=== PATIENT | female | born 1990 | race Caucasian/White ===

== ENCOUNTER 2017-02-14 15:03 | Observation (INO) ==
[2017-02-14] MEDS ORDERED: IPRATROPIUM/ALBUTEROL 3 ML AMPUL.NEB NEB ONE ×2 (15:14→15:18)
[2017-02-14] MEDS ORDERED: LEVOFLOXACIN 750 MG TABLET PO ONE (15:31)
[2017-02-14] MEDS ORDERED: 0.9 % SODIUM CHLORIDE 2,000 ML IV ONE (15:31)
[2017-02-14] MEDS ORDERED: LORazepam 2 MG/ML VIAL IV ONE (15:31)
[2017-02-14] MEDS ORDERED: TERBUTALINE 1 MG/ML VIAL SQ ONE (15:31)
[2017-02-14 16:29] LABS: Basophils # (Auto) 0.1 K/mcL (0.0-0.3); Basophils % (Auto) 0.5 % (0.0-2.0); Eosinophils # (Auto) 3.2 K/mcL (0.0-0.7); Eosinophils % (Auto) 31.1 % (0.0-7.0); Granulocytes % (Auto) 41.3 % (38.0-78.0); Lymphocytes # (Auto) 2.3 K/mcL (1.5-4.8); Lymphocytes % (Auto) 22.2 % (15.5-49.0); Mean Cell Volume 94.2 fL (80.0-100.0); Mean Corpuscular HGB Conc 32.9 g/dL (31.0-36.0); Monocytes # (Auto) 0.5 K/mcL (0.1-0.9); Monocytes % (Auto) 4.9 % (1.0-12.0); Platelet Count 326 K/mcL (140-440); RBC 5.33 M/mcL (4.00-5.20); Red Cell Distribution Width 13.1 % (11.5-14.5)
[2017-02-14 16:46] LABS: ALT/SGPT 20 U/l (0-40); Albumin 4.6 gm/dL (3.2-5.2); Albumin/Globulin Ratio 1.3 (1.0-2.3); Alkaline Phosphatase 74 U/L (39-117); Blood Urea Nitrogen 12 mg/dl (6-20)
[2017-02-14] MEDS ORDERED: ALBUTEROL SULFATE 5 MG/ML NEB SOLUTION BOTTLE NEB ONE ×2 (16:55→17:12)
[2017-02-14] MEDS ORDERED: methylPREDNISolone SOD SUCC 125 MG/2 ML VIAL IV ONE (16:55)
--- NOTE | 2017-02-14 17:06 | Emergency Department Note ---
General Adult HPI - General Chief complaint: Shortness of Breath/Dyspnea Stated complaint: difficulty breathing/cough Time Seen by Provider: 02/14/17 15:31 Source: patient Mode of arrival: ambulatory Limitations: no limitations - History of Present Illness HPI Narrative: 26-year-old female comes in with dyspnea and hypoxia down to 87% with significant cough. Has history of recent pneumonia 6 weeks ago which was treated and resolved. Denies fever and vomiting but is having some nausea. No diarrhea or dysuria - Related Data Previous Rx's Medication Instructions Recorded Albuterol Sulfate [Proair Hfa] 2 puff IH Q6 PRN #1 hfa.aer.ad 11/13/16 fluoxetine 20 mg capsule 20 mg PO QDAY #90 cap 12/17/16 Allergies Allergy/AdvReac Type Severity Reaction Status Date / Time No Known Drug Allergies Allergy Verified 10/30/16 05:55 Review of Systems All systems ED: reviewed and negative except as stated. Past Medical History - Past Medical History Attestation: Yes: The following information was validated with the patient. Medical history: Reports: no medical history Surgical history ED: Reports: tonsillectomy, other (wisdom teeth) Psychiatric history: Reports: anxiety, depression - Social History smoking status: Former smoker Alcohol use: Reports: Occasionally Drug use: Reports: unknown Physical Exam Thin female with some respiratory distress and significant tight cough. Normocephalic atraumatic. Conjunctive are clear sclerae nonicteric. No nasal discharge or congestion. Oropharynx is pink and moist. Neck is supple without lymphadenopathy or thyromegaly. Heart is tachycardic without murmur. Lungs are with wheezes and rhonchi in all lung muniz. Cannot take a deep breath without significant coughing episode. Oxygen saturations drop as well with these. Soft nontender nondistended no peritoneal signs or guarding. No pedal edema. +2 radial pulse. Alert and oriented - General Limitations: no limitations Course Vital Signs Temperature 97.9 F 02/14/17 15:05 Pulse Rate 134 H 02/14/17 15:05 Respiratory Rate 28 H 02/14/17 15:05 Blood Pressure 124/80 02/14/17 15:05 Pulse Oximetry (%) 87 L 02/14/17 15:05 Temperature 97.7 F 02/15/17 06:54 Pulse Rate 99 H 02/15/17 07:53 Respiratory Rate 18 02/15/17 07:53 Blood Pressure 125/75 02/15/17 06:54 Pulse Oximetry (%) 96 02/15/17 06:54 Medical Decision Making - Medical Records Medical records reviewed: Yes I reviewed the patient's medical records. - Lab Data Lab results reviewed: Yes I reviewed the patient's lab results. Result diagrams: 02/15/17 05:30 02/15/17 05:30 Lab Results 02/14/17 02/14/17 02/14/17 Range/Units 15:35 15:35 16:01 WBC 10.1 (4.5-11.0) K/mcL RBC 5.33 H (4.00-5.20) M/mcL Hgb 16.5 H (12.0-15.0) g/dL Hct 50.2 H (36.0-48.0) % MCV 94.2 (80.0-100.0) fL MCH 31.0 (26.0-34.0) pg MCHC 32.9 (31.0-36.0) g/dL RDW 13.1 (11.5-14.5) % Plt Count 326 (140-440) K/mcL MPV 9.1 (7.4-10.4) fL Gran % 41.3 (38.0-78.0) % Lymph % (Auto) 22.2 (15.5-49.0) % [place] % (Auto) 4.9 (1.0-12.0) % Eos % (Auto) 31.1 H (0.0-7.0) % Baso % (Auto) 0.5 (0.0-2.0) % Gran # 4.2 (1.8-8.0) K/mcL Lymph # 2.3 (1.5-4.8) K/mcL [place] # 0.5 (0.1-0.9) K/mcL Eos # 3.2 H (0.0-0.7) K/mcL Baso # 0.1 (0.0-0.3) K/mcL VBG Lactic Acid 1.0 (0.5-2.2) mmol/L Sodium 142 (133-145) mmol/L Potassium 4.0 (3.3-5.1) mmol/L Chloride 105 (96-108) mmol/L Carbon Dioxide 23 (22-30) mmol/L Anion Gap 14.0 (8-16) BUN 12 (6-20) mg/dl Creatinine 1.0 (0.6-1.1) mg/dl GFR Calculation 79 Glucose 85 (70-105) mg/dL Calcium 9.5 (8.6-10.4) mg/dl Total Bilirubin 1.1 H (0.0-1.0) mg/dL AST 28 (0-37) U/l ALT 20 (0-40) U/l Alkaline Phosphatase 74 (39-117) U/L Total Protein 8.1 (5.9-8.4) gm/dL Albumin 4.6 (3.2-5.2) gm/dL Globulin 3.5 (2.2-3.7) gm/dL Albumin/Globulin Ratio 1.3 (1.0-2.3) Detailed blood gas shows pH 7.43 PCO2 35 PO2 59 on room air - Radiology Data Radiology results reviewed: Yes I reviewed the patient's radiology results. Chest x-ray shows no acute cardiopulmonary pathology. Stigmata of asthma with hyperinflation Disposition Clinical Impression: Bronchitis Summary: Patient initially treated with oxygen and ordered laboratory and x-ray along with breathing treatment. Improvement with single breathing treatment however required continuous albuterol as she was still with wheezing and rhonchi in all lung muniz. Solu- Medrol Levaquin. Blood gases show hypoxia At this point it was clear she had significant bronchitis with hypoxia and was not able to go home in stable condition-she required admission with breathing treatments IV steroids and oxygen Dr. Krishnan was consulted and agreed to accept patient for further care Disposition: Xfer As Inpt ([facility]) Condition: Fair
[2017-02-14] MEDS ORDERED: SENNOSIDES 1 TABLET PO PRN (18:37)
[2017-02-14] MEDS ORDERED: MAG HYDROX/AL HYDROX/SIMETH 30 ML ORAL.SUSP PO PRN (18:37)
[2017-02-14] MEDS ORDERED: MAGNESIUM SULFATE 2 GM/50 ML BAG IV ONE (18:37)
[2017-02-14] MEDS ORDERED: NALOXONE HCL 0.4 MG/ML VIAL IV PRN (18:37)
[2017-02-14] MEDS ORDERED: ONDANSETRON 4 MG/2 ML VIAL IV PRN (18:37)
--- NOTE | 2017-02-14 18:49 | XRay Report ---
CLINICAL INFORMATION: Dyspnea COMPARISON: 11/13/2016 FINDINGS:The heart size, mediastinum and pulmonary vessels are unremarkable. The lungs are clear. There are no effusions. The bones and soft tissues are within normal limits. IMPRESSION: Normal chest. Please consider d-dimer measurement if the patient is on oral contraceptives Interpreted and Authenticated by: Chris Box 02/14/17
--- NOTE | 2017-02-14 19:18 | Internal Med History&Physical ---
Medical - H&P: HPI Patient information: Note initiated : 02/14/17 at 7:10 pm Service Date, if different from initiated Date: [] Patient: Jackie Beth a 26 y/o F admitted on 02/14/17 for difficulty breathing/cough. Chief Complaint: [] History of present illness: Ms. Beth is a 26 year old female with no known h/o asthma, presents to the ER with shortness of breath, chest tightness, cough and palpitations. The patient notes her symptoms have been going on for last 2 months, 6 weeks ago she was diagnosed with PNA and her symptoms somewhat improved after treatment. She did not complete the course for pna, and nearly a week or two later her symptoms started to come back up again. The patinet symptoms progressively got worse and therefore she decided to come to the ER her main symptom is shortness of breath associated with chest tightness and wheezing. This is accompanied by cough which is intermittent and she occasionaly brings up whitish sputum. The patient has ventolin which somewhat helps. She has also been prescribed a symbicort inhaler by her doctor. symptoms likely worse by grass, but she does not report any other allergies. Patient denies h/o any allergies, change in any perfumes, she has pets which she does not think she is allergic too, no h/o asthma in the family. no change in job or any other exposure. In the ER she was tachcyardic, wheezing and hypoxic, she had a neg x ray and unremarkable labs, She received IV steroids, duonebs and terbutaline in the ER. The patient will be admitted to hospital for further management. All systems: reviewed and no additional remarkable complaints except as stated ( except as per HPI) Medical - H&P: PMH Medical history: Medical History (Last Updated 02/14/17 @ 17:06 by Duane Carvajal MD) Vaginal discharge (Acute) Pelvic pain (Acute) Viral syndrome (Acute) Urinary tract infection (Acute) Influenza (Acute) Acute neck sprain (Acute) Rotator cuff (capsule) sprain (Acute) Upper respiratory infection (Acute) Bronchitis (Acute) Post traumatic stress disorder (Chronic) Hematochezia (Chronic) Drug abuse (Chronic) Depression (Chronic) Anxiety (Chronic) Surgical history: Past Surgical History (Last Updated 02/05/17 @ 14:12 by [facility]) History of wisdom tooth extraction (Chronic) History of tonsillectomy (Chronic) Status post right foot surgery (Chronic) History of colonoscopy (Chronic) Family history: reviewed and not pertinent Social history: lives with denies substance abuse except smoking. Pt to g et counselling. Smoking status: Current every day smoker Medical - H&P: Meds Home Medications Medication Instructions Recorded Confirmed Type Albuterol Sulfate [Proair Hfa] 2 puff IH Q6 PRN #1 hfa.aer.ad 11/13/16 02/14/17 Rx fluoxetine 20 mg capsule 20 mg PO QDAY #90 cap 12/17/16 02/14/17 Rx Allergies Allergy/AdvReac Type Severity Reaction Status Date / Time No Known Drug Allergies Allergy Verified 10/30/16 05:55 Medical - H&P: Exam - Constitutional Vitals: Temp Pulse Resp BP Pulse Ox 97.9 F 115 H 16 117/73 90 02/14/17 18:38 02/14/17 18:38 02/14/17 18:38 02/14/17 18:38 02/14/17 18:38 Exam: GENERAL: The patient is a well-developed, well-nourished in no apparent distress. Is alert and oriented x3. VITAL SIGNS: Reviewed and as noted elsewhere. HEENT: Head is normocephalic and atraumatic. Extraocular muscles are intact. Pupils are equal, round, and reactive to light. Nares appeared normal. Mouth appears any without lesions. Mucous membranes are moist. NECK: Normal to inspection, Supple, No lymphadenopathy or thyromegaly. LUNGS: Air entry equal on both sides, bilateral wheezing and rhonich, prlonged exp phase. No crackles, No accessory muscles of respiration, she is speaking full sentences. HEART: tachycardic rate rate and rhythm normal, S1 and S2 heard, no Gallop, S3 or Rub Noted, No Gross murmur heard. ABDOMEN: Soft, nontender, and nondistended. Positive bowel sounds. No hepatosplenomegaly was noted. EXTREMITIES: No cyanosis, clubbing, rash, lesions or edema. NEUROLOGIC: Cranial nerves II through XII are grossly intact. Motor and Sensory System Grossly Intact PSYCHIATRIC: Normal affect, Normal Mood. Appropriate Behavior. SKIN: No ulceration or wounds noted, No jaundice, No rash noted. Medical - H&P: Reslt - Labs CBC & Chem 7: 02/14/17 15:35 02/14/17 15:35 Medical - H&P: A/P - Narrative A/P Narrative: Acute asthma exacerbation: treat with steroids and duonebs, no e/o infection on the CXR, will give one dose of mag sulphate. aware of radiolgoy request of erick cantrell, but given clinical history and findings of reactive airway disease/asthma, I think PE Is very low probability and D dimer will not help much. wells pe score is 1.5 for tachycardia. Acute hypoxic resp failure: due to asthma, oxygen supplementation for now Anxiety disorder: not taking any meds for now. DVT hep sq Diet regular Code full Medical - H&P: Qual - Stroke Symptom Onset Unknown: No - VTE Deep Vein Thrombosis/Pulmonary Embolism Present on Admission: No
[2017-02-14] MEDS: IPRATROPIUM/ALBUTEROL 3 ML AMPUL.NEB NEB SCH ×2 (19:24→23:03)
[2017-02-14] MEDS: 0.9 % SODIUM CHLORIDE 1,000 ML IV SCH (20:13)
[2017-02-14] MEDS: NICOTINE 7 MG PATCH TOPICAL SCH (20:20)
[2017-02-14] MEDS: HEPARIN 5,000 UNIT/ML VIAL SQ SCH (21:50)
[2017-02-14] MEDS: FAMOTIDINE/PF 20 MG/2 ML VIAL IV SCH (21:51)
[2017-02-14] MEDS: 0.9 % SODIUM CHLORIDE 10 ML SYRINGE IV SCH (22:01)
[2017-02-14] MEDS: ACETAMINOPHEN 325 MG TABLET PO PRN (23:40)
[2017-02-15] MEDS: IPRATROPIUM/ALBUTEROL 3 ML AMPUL.NEB NEB SCH ×6 (03:28→23:03)
[2017-02-15] MEDS: 0.9 % SODIUM CHLORIDE 10 ML SYRINGE IV SCH ×3 (05:24→20:18)
[2017-02-15 06:35] LABS: Basophils # (Auto) 0 K/mcL (0.0-0.3); Basophils % (Auto) 0 % (0.0-2.0); Eosinophils # (Auto) 0 K/mcL (0.0-0.7); Eosinophils % (Auto) 0.1 % (0.0-7.0); Granulocytes % (Auto) 91.8 % (38.0-78.0); Lymphocytes # (Auto) 0.5 K/mcL (1.5-4.8); Lymphocytes % (Auto) 5.9 % (15.5-49.0); Mean Cell Volume 93.5 fL (80.0-100.0); Mean Corpuscular HGB Conc 33.7 g/dL (31.0-36.0); Mean Corpuscular Hemoglobin 31.5 pg (26.0-34.0); Monocytes # (Auto) 0.2 K/mcL (0.1-0.9); Monocytes % (Auto) 2.2 % (1.0-12.0); Platelet Count 307 K/mcL (140-440); RBC 4.45 M/mcL (4.00-5.20)
[2017-02-15 06:55] LABS: ALT/SGPT 17 U/l (0-40); Albumin/Globulin Ratio 1.3 (1.0-2.3); Alkaline Phosphatase 65 U/L (39-117); Bilirubin,Direct < 0.2 mg/dL (0.0-0.3); Blood Urea Nitrogen 9 mg/dl (6-20); Gamma Glutamyl Transpeptidase 13 U/L (5-36); Magnesium 2.1 mg/dL (1.6-2.5); Uric Acid 4.2 mg/dL (2.5-8.0)
[2017-02-15] MEDS: ACETAMINOPHEN 325 MG TABLET PO PRN (09:19)
[2017-02-15] MEDS: NEUTRA PHOS 1 PACKET PO SCH ×2 (09:19→20:36)
[2017-02-15] MEDS: predniSONE 20 MG TABLET PO SCH (09:20)
[2017-02-15] MEDS: FAMOTIDINE/PF 20 MG/2 ML VIAL IV SCH ×2 (09:21→20:35)
[2017-02-15] MEDS: HEPARIN 5,000 UNIT/ML VIAL SQ SCH ×2 (09:27→20:17)
[2017-02-15] MEDS: NICOTINE 7 MG PATCH TOPICAL SCH (09:31)
[2017-02-15] MEDS: 0.9 % SODIUM CHLORIDE 1,000 ML IV SCH ×2 (09:31→22:01)
--- NOTE | 2017-02-15 12:03 | Internal Med Progress Note ---
Medical - PN: Subj Patient information: Note initiated : 02/15/17 at 12:01 pm Service Date, if different from initiated Date: [] Patient: Jackie Beth a 26 y/o F admitted on 02/14/17 for difficulty breathing/cough. Chief Complaint: [] Interval history: Ms. Beth is a 26 year old female with no known h/o asthma, presents to the ER with shortness of breath, chest tightness, cough and palpitations. The patient notes her symptoms have been going on for last 2 months, 6 weeks ago she was diagnosed with PNA and her symptoms somewhat improved after treatment. She did not complete the course for pna, and nearly a week or two later her symptoms started to come back up again. The patinet symptoms progressively got worse and therefore she decided to come to the ER her main symptom is shortness of breath associated with chest tightness and wheezing. This is accompanied by cough which is intermittent and she occasionaly brings up whitish sputum. The patient has ventolin which somewhat helps. She has also been prescribed a symbicort inhaler by her doctor. symptoms likely worse by grass, but she does not report any other allergies. Patient denies h/o any allergies, change in any perfumes, she has pets which she does not think she is allergic too, no h/o asthma in the family. no change in job or any other exposure. In the ER she was tachcyardic, wheezing and hypoxic, she had a neg x ray and unremarkable labs, She received IV steroids, duonebs and terbutaline in the ER. The patient will be admitted to hospital for further management. 02/15: Pt seen exained, sitting comfortably in the bed, no acute issues reported , has chr back pain, which she notes is getting worse after repeated bouts of coughing and tyelnol and ibuprofen have not been helping much. will try some tramadol the patients breathing is better, but she is still sob when she gets out of bed She remains tachycardic, but no longer hypoxic on further discussion the patient notes her HR is always elevated whenever she has had her BP checked, always 110 to 120 will check TSH She is still wheezing on exam. Pertinent ROS: Denies headache, dizziness Denies chest pain, palpitations cough and sob on activity present. Denies abdominal pain, nausea or vomiting. - Constitutional Vitals: Vital Signs Temp Pulse Resp BP Pulse Ox 97.8 F 128 H 20 133/74 96 02/15/17 11:37 02/15/17 11:10 02/15/17 11:37 02/15/17 11:37 02/15/17 11:37 Period Temp Pulse Resp BP Sys/Gore Pulse Ox Last 24 Hr 97.7 F-97.9 F 99-128 16-22 125-142/72-88 91-97 Intake and Output 02/14/17 02/15/17 02/15/17 21:59 05:59 13:59 Intake Total 500 / 500 1598 / 1598 Output Total 400 / 400 Balance 100 / 100 1598 / 1598 Weight 160 lb Intake & Output: Intake & Output 02/14/17 02/15/17 02/15/17 21:59 05:59 13:59 Intake Total 500 / 500 1598 / 1598 Output Total 400 / 400 Balance 100 / 100 1598 / 1598 Weight 160 lb Intake: IV 998 / 998 Sodium Chloride 0.9% 1, 998 / 998 000 ml @ 75 mls/hr IV . [id number] [facility] Rx#:[id number] Oral 500 / 500 600 / 600 Output: Void Amount 400 / 400 Other: # Voids 1 Exam: Constitutional; Afebrile, cooperative, alert, not in distress. Eyes- No icterus, , No periorbital swelling Ears- Ext ear normal, hearing normal to conversation. Neck- Midline trachea, supple Respiratory system: Air Entry equal on both sides, Nbil wheezing, prlonged exp phase noted. speaking full sentences, no accessory muscle use. CVS- Rate rhythm regular, S1,S2 heard, no gallop, no rub. 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 Medical - PN: Obj Da - Labs CBC & Chem 7: 02/15/17 05:30 02/15/17 05:30 Labs: Abnormal Lab Results 02/15/17 02/15/17 05:30 05:30 Gran % 91.8 H Lymph % (Auto) 5.9 L Lymph # 0.5 L Carbon Dioxide 18 L Glucose 152 H Calcium 8.5 L Phosphorus 1.6 L Meds: Medications Acetaminophen (Tylenol) 650 mg PO Q6HP PRN PRN Reason: PAIN/FEVER > 101 Last Admin: 02/15/17 09:19 Dose: 650 mg Al Hydrox/Mg Hydrox/Simethicone (Maalox) 30 ml PO Q6HP PRN PRN Reason: Dyspepsia Albuterol/Ipratropium (Duoneb) 3 ml NEB Q4HRT [facility] Last Admin: 02/15/17 11:08 Dose: 3 ml Famotidine (Pepcid) 20 mg IV Q12 [facility] Last Admin: 02/15/17 09:21 Dose: 20 mg Heparin Sodium (Porcine) (Heparin) 5,000 unit SQ Q12 [facility] Last Admin: 02/15/17 09:27 Dose: Not Given Sodium Chloride (Sodium Chloride 0.9%) 1,000 mls @ 75 mls/hr IV .[id number] [facility] Last Admin: 02/15/17 09:31 Dose: 75 mls/hr Naloxone HCl (Narcan) 0.1 mg IV Q2MIN PRN PRN Reason: Opiate Reversal Nicotine (Nicoderm) 7 mg TOPICAL DAILY@1000 [facility] Last Admin: 02/15/17 09:31 Dose: 7 mg Ondansetron HCl (Zofran) 4 mg IV Q6HP PRN PRN Reason: Nausea And Vomiting Potassium/Phosphorus/Sodium (Neutra Phos) 1 packet PO BID [facility] Last Admin: 02/15/17 09:19 Dose: 1 packet Prednisone (Prednisone) 40 mg PO QAC [facility] Last Admin: 02/15/17 09:20 Dose: 40 mg Senna (Senokot) 2 tab PO HS PRN PRN Reason: Constipation Sodium Chloride (Saline Flush) 10 ml IV Q8 [facility] Last Admin: 02/15/17 05:24 Dose: Not Given Medical - PN: A/P - Time Spent With Patient Total time spent is greater than 50% in coordination of care (as documented) at patient's floor/unit and/or counseling patient: - Narrative A/P Narrative: Acute asthma exacerbation: Treat with Steroids, duonebs, X ray neg for infection Back pain: tyelnol not working trial of tramadol Anxiety: off medications, was supposed to be on fluoxetine Tachycardia: likely from anxiety, and duonebs. Monitor. DVT hep sq Diet regular full c ode. Dispo anticipate d/c in AM if improves. Medical - PN: Qual - Stroke Symptom Onset Unknown: No - VTE Deep Vein Thrombosis/Pulmonary Embolism Present on Admission: No
[2017-02-15] MEDS: traMADol 50 MG TABLET PO PRN (17:57)
[2017-02-16] MEDS: traMADol 50 MG TABLET PO PRN ×4 (03:35→20:17)
[2017-02-16] MEDS: IPRATROPIUM/ALBUTEROL 3 ML AMPUL.NEB NEB SCH ×6 (03:35→23:01)
[2017-02-16] MEDS: 0.9 % SODIUM CHLORIDE 10 ML SYRINGE IV SCH ×3 (05:31→20:17)
[2017-02-16] MEDS: HEPARIN 5,000 UNIT/ML VIAL SQ SCH ×2 (08:01→20:17)
[2017-02-16] MEDS: predniSONE 20 MG TABLET PO SCH (09:05)
[2017-02-16] MEDS: FAMOTIDINE/PF 20 MG/2 ML VIAL IV SCH ×2 (09:06→20:17)
[2017-02-16] MEDS: NEUTRA PHOS 1 PACKET PO SCH ×2 (09:06→20:17)
[2017-02-16] MEDS: NICOTINE 7 MG PATCH TOPICAL SCH (09:12)
[2017-02-16 10:22] LABS: Basophils # (Auto) 0 K/mcL (0.0-0.3); Basophils % (Auto) 0.1 % (0.0-2.0); Eosinophils # (Auto) 0.6 K/mcL (0.0-0.7); Eosinophils % (Auto) 3.6 % (0.0-7.0); Granulocytes % (Auto) 69.8 % (38.0-78.0); Lymphocytes # (Auto) 3.5 K/mcL (1.5-4.8); Mean Corpuscular HGB Conc 33.2 g/dL (31.0-36.0); Mean Corpuscular Hemoglobin 31.6 pg (26.0-34.0); Monocytes # (Auto) 0.9 K/mcL (0.1-0.9); Monocytes % (Auto) 5.5 % (1.0-12.0); Platelet Count 285 K/mcL (140-440); RBC 4.17 M/mcL (4.00-5.20); Red Cell Distribution Width 13.8 % (11.5-14.5)
[2017-02-16 10:44] LABS: ALT/SGPT 14 U/l (0-40); Albumin 3.4 gm/dL (3.2-5.2); Albumin/Globulin Ratio 1.3 (1.0-2.3); Alkaline Phosphatase 54 U/L (39-117); Bilirubin,Direct < 0.2 mg/dL (0.0-0.3); Blood Urea Nitrogen 10 mg/dl (6-20); Gamma Glutamyl Transpeptidase 12 U/L (5-36); Uric Acid 3.1 mg/dL (2.5-8.0)
[2017-02-16] MEDS: 0.9 % SODIUM CHLORIDE 1,000 ML IV SCH (12:45)
--- NOTE | 2017-02-16 16:17 | Internal Med Progress Note ---
Medical - PN: Subj Patient information: Note initiated : 02/16/17 at 4:17 pm Service Date, if different from initiated Date: [] Patient: Jackie Beth a 26 y/o F admitted on 02/14/17 for difficulty breathing/cough. Chief Complaint: [] Interval history: february 14, 2017: History of present illness; Ms. Beth is a 26 year old female with no known h/o asthma, presents to the ER with shortness of breath, chest tightness, cough and palpitations. The patient notes her symptoms have been going on for last 2 months, 6 weeks ago she was diagnosed with PNA and her symptoms somewhat improved after treatment. She did not complete the course for pna, and nearly a week or two later her symptoms started to come back up again. The patient's symptoms progressively got worse and therefore she decided to come to the ER her main symptom is shortness of breath associated with chest tightness and wheezing. This is accompanied by cough which is intermittent and she occasionally brings up whitish sputum. The patient has ventolin which somewhat helps. She has also been prescribed a symbicort inhaler by her doctor. symptoms likely worse by grass, but she does not report any other allergies. Patient denies h/o any allergies, change in any perfumes, she has pets which she does not think she is allergic too, no h/o asthma in the family. no change in job or any other exposure. In the ER she was tachcyardic, wheezing and hypoxic, she had a neg x ray and unremarkable labs, She received IV steroids, duonebs and terbutaline in the ER. The patient will be admitted to hospital for further management. 02/15: Pt seen examined, sitting comfortably in the bed, no acute issues reported , has chr back pain, which she notes is getting worse after repeated bouts of coughing and tyelnol and ibuprofen have not been helping much. will try some tramadol the patients breathing is better, but she is still sob when she gets out of bed She remains tachycardic, but no longer hypoxic on further discussion the patient notes her HR is always elevated whenever she has had her BP checked, always 110 to 120 .will check TSH She is still wheezing on exam. february 16: today, the patient notes she is continuing to have a cough, which is intermittently productive of a greenish phlegm. She still reports a significant amount of pain in her chest and around her ribs with coughing . She says she has not really been taking care of herself very well over the last several months, as she has family members going through cancer and various other issues, and her work is fairly stressful. She also notes that her heart rate is always high whenever anyone checks it. She really doesn't know why, but does say that her mother has a known arrhythmia. otherwise, today, she is not having fever or chills, headaches or dizziness or palpitations. She has mild dyspnea with exertion. she denies current GI or symptoms. the patient previously used Depo Provera shots for about 3 years, but says she quit 2 years ago - Constitutional Vitals: Vital Signs Temp Pulse Resp BP Pulse Ox 97.7 F 123 H 20 129/83 93 02/16/17 16:00 02/16/17 15:38 02/16/17 16:00 02/16/17 16:00 02/16/17 16:00 Period Temp Pulse Resp BP Sys/Gore Pulse Ox Last 24 Hr 97.6 F-98.5 F 99-135 16-26 105-139/64-86 93-97 Intake and Output 02/16/17 02/16/17 02/16/17 05:59 13:59 21:59 Intake Total 1038 / 1038 1300 / 1300 Balance 1038 / 1038 1300 / 1300 Intake & Output: Intake & Output 02/16/17 02/16/17 02/16/17 05:59 13:59 21:59 Intake Total 1038 / 1038 1300 / 1300 Balance 1038 / 1038 1300 / 1300 Intake: IV 938 / 938 1000 / 1000 Sodium Chloride 0.9% 1, 938 / 938 1000 / 1000 000 ml @ 75 mls/hr IV . [id number] [facility] Rx#:[id number] Oral 100 / 100 300 / 300 Other: Meal Breakfast Percent of Meal Consumed 100% Feeding Ability Independent # Voids 1 on exam, she is a well-developed well-nourished female in no acute distress. Neck is supple without obvious lymphadenopathy or JVD. Cardiac exam shows regular rate and rhythm, with a tachycardic rate. Lungs: Show fairly coarse breath sounds throughout, with occasional wheeze. No ralesor rhonchi are noted. There is no accessory muscle use. Abdomen is soft and nontender. Extremities show no edema. Medical - PN: Obj Da - Labs CBC & Chem 7: 02/16/17 09:15 02/16/17 09:15 Labs: Abnormal Lab Results 02/16/17 02/16/17 02/16/17 09:15 09:15 09:15 WBC 16.9 H Gran % Lymph % (Auto) Gran # 11.8 H Lymph # Chloride 109 H Carbon Dioxide 19 L Glucose Calcium 8.1 L Phosphorus Lactate Dehydrogenase 262 H NT-Pro-B Natriuret Pep 239.7 H 02/15/17 02/15/17 05:30 05:30 WBC Gran % 91.8 H Lymph % (Auto) 5.9 L Gran # Lymph # 0.5 L Chloride Carbon Dioxide 18 L Glucose 152 H Calcium 8.5 L Phosphorus 1.6 L Lactate Dehydrogenase NT-Pro-B Natriuret Pep heart rates are varying from 99-135 today. lactic acid was normal at 1.0 D-dimer is normal at less than 0.27 BNP is minimally elevated at 239TSH is normal at 0.38 Althoughthis may be a bit suppressed urine hCG was negative. Echocardiogram is pending. February 14: ABG on room airshowed pH 7.43, CO2 of 35, PO2 of 59, bicarbonate of 23, O2 saturation 91% February 14: Chest x-ray was read as normal. Meds: Medications Acetaminophen (Tylenol) 650 mg PO Q6HP PRN PRN Reason: PAIN/FEVER > 101 Last Admin: 02/15/17 09:19 Dose: 650 mg Al Hydrox/Mg Hydrox/Simethicone (Maalox) 30 ml PO Q6HP PRN PRN Reason: Dyspepsia Albuterol/Ipratropium (Duoneb) 3 ml NEB Q4HRT [facility] Last Admin: 02/16/17 15:35 Dose: 3 ml Famotidine (Pepcid) 20 mg IV Q12 [facility] Last Admin: 02/16/17 09:06 Dose: 20 mg Heparin Sodium (Porcine) (Heparin) 5,000 unit SQ Q12 [facility] Last Admin: 02/16/17 08:01 Dose: Not Given Sodium Chloride (Sodium Chloride 0.9%) 1,000 mls @ 75 mls/hr IV .[id number] [facility] Last Admin: 02/16/17 12:45 Dose: 75 mls/hr Naloxone HCl (Narcan) 0.1 mg IV Q2MIN PRN PRN Reason: Opiate Reversal Nicotine (Nicoderm) 7 mg TOPICAL DAILY@1000 [facility] Last Admin: 02/16/17 09:12 Dose: 7 mg Ondansetron HCl (Zofran) 4 mg IV Q6HP PRN PRN Reason: Nausea And Vomiting Potassium/Phosphorus/Sodium (Neutra Phos) 1 packet PO BID [facility] Last Admin: 02/16/17 09:06 Dose: 1 packet Prednisone (Prednisone) 40 mg PO QAMCC [facility] Last Admin: 02/16/17 09:05 Dose: 40 mg Senna (Senokot) 2 tab PO HS PRN PRN Reason: Constipation Sodium Chloride (Saline Flush) 10 ml IV Q8 [facility] Last Admin: 02/16/17 13:13 Dose: Not Given Tramadol HCl (Ultram) 50 mg PO Q4-6HP PRN PRN Reason: Pain Last Admin: 02/16/17 16:15 Dose: 50 mg Medical - PN: A/P - Time Spent With Patient Total time spent is greater than 50% in coordination of care (as documented) at patient's floor/unit and/or counseling patient: 25 - 35 minutes - Narrative A/P Narrative: #1. Dyspnea and tachycardia. likely Acute asthma exacerbation: Treated with Steroids, duonebs. this patient had a markedly elevated eosinophil count on arrival, so may have had an allergic reaction to something inhaled. her prolonged course of shortness of breath and recurrent significant hypoxia, are bit worrisome. We did a d-dimer today, and fortunately that was negative. -Continue current treatment. -if symptoms recur when steroids are weaned, she may need further allergy testing. i also suggested referral to the new self pay specialist this coming into town next month. #2.Back pain and now chest discomfort related to coughing.:continue steroids, Tylenol, tramadol. -tussin with codeine for her cough. #3. Cardiac. -Persistent tachycardia, and what sounds like chronic tachycardia. BNP is mildly elevated. Her TSH is somewhat suppressed, so I will check free T3 and free T4. I also ordered an echocardiogram to evaluate for any tachycardia induced dysfunction. #4.Anxiety/ PTSD: off medications, was supposed to be on fluoxetine. i find that fluoxetine can be a little overstimulating. I will review with the patient further she would like to try something different for anxiety such as Paxil or celexa with or without BuSpar.. #5.DVT prophylaxis:hep sq Diet regular #6.full code. #7. Reported past history of drug use. This may or may not impact her current symptoms. this visit has taken approximately 35 minutes today, to review test results, interview and examine the patient, order more tests and review those,and write orders. Medical - PN: Qual - Stroke Symptom Onset Unknown: No - VTE Deep Vein Thrombosis/Pulmonary Embolism Present on Admission: No
[2017-02-16] MEDS ORDERED: guaiFENesin/CODEINE 10 ML UDC PO PRN (19:56)
[2017-02-16] MEDS ORDERED: ACETAMINOPHEN W/CODEINE #3 1 TABLET PO PRN (21:15)
[2017-02-17] MEDS: 0.9 % SODIUM CHLORIDE 1,000 ML IV SCH (00:55)
[2017-02-17] MEDS: IPRATROPIUM/ALBUTEROL 3 ML AMPUL.NEB NEB SCH ×3 (02:55→11:10)
[2017-02-17] MEDS: 0.9 % SODIUM CHLORIDE 10 ML SYRINGE IV SCH (05:20)
[2017-02-17 05:57] LABS: Basophils # (Auto) 0.1 K/mcL (0.0-0.3); Basophils % (Auto) 0.5 % (0.0-2.0); Eosinophils # (Auto) 0.9 K/mcL (0.0-0.7); Eosinophils % (Auto) 8.5 % (0.0-7.0); Granulocytes % (Auto) 53.8 % (38.0-78.0); Lymphocytes # (Auto) 3.4 K/mcL (1.5-4.8); Lymphocytes % (Auto) 30.3 % (15.5-49.0); Mean Cell Volume 94.9 fL (80.0-100.0); Mean Corpuscular HGB Conc 33.3 g/dL (31.0-36.0); Mean Corpuscular Hemoglobin 31.6 pg (26.0-34.0); Monocytes # (Auto) 0.8 K/mcL (0.1-0.9); Monocytes % (Auto) 6.9 % (1.0-12.0); Platelet Count 272 K/mcL (140-440); RBC 4.04 M/mcL (4.00-5.20); Red Cell Distribution Width 13.5 % (11.5-14.5)
[2017-02-17 06:27] LABS: ALT/SGPT 15 U/l (0-40); Albumin 3.4 gm/dL (3.2-5.2); Albumin/Globulin Ratio 1.4 (1.0-2.3); Alkaline Phosphatase 54 U/L (39-117); Bilirubin,Direct < 0.2 mg/dL (0.0-0.3); Blood Urea Nitrogen 9 mg/dl (6-20); Gamma Glutamyl Transpeptidase 10 U/L (5-36); Magnesium 1.8 mg/dL (1.6-2.5); Uric Acid 3.1 mg/dL (2.5-8.0)
[2017-02-17] MEDS: traMADol 50 MG TABLET PO PRN (08:09)
[2017-02-17] MEDS: HEPARIN 5,000 UNIT/ML VIAL SQ SCH (08:49)
--- NOTE | 2017-02-17 09:21 | Echocardiogram Report ---
ECHOCARDIOGRAM: 2-D and M-mode echocardiography with cardiac Doppler and color flow imaging were performed with a [employer] MX. Indication is hypoxia and chronic tachycardia. Overall size of the four cardiac chambers and aortic root appeared normal as did RV and LV wall thickness and systolic performance. Estimated LV ejection fraction of 60%. The aortic valve appeared trileaflet and normal. There was no evidence for aortic stenosis or aortic regurgitation by Doppler interrogation. The mitral and tricuspid valves appeared unremarkable. Doppler interrogation of LV inflow disclosed normal "S "a " wave dominance. Borderline sinus tachycardia, rate 100, was present. CONCLUSION: No abnormalities noted. Findings were called to the nursing unit, 5:45 p.m., 02/16/2017. (See accompanying M-mode and Doppler reports for quantitation.) ECHOCARDIOGRAPHY M-MODE CALCULATIONS: HT: 69'' WT: 169 BSA: 1.92 m2 NORMALS AORTA: AORTIC ROOT 2.5 2.0-3.7 cm LEFT ATRIUM 3.0 1.9-4.0 cm MITRAL VALVE: EXCURSION 2.0 1.9-2.7 cm EPSS 0.3 <0.5 cm LT VENTRICLE: LVID (ED) 4.2 3.5-5.7 cm LVID (ES) 2.8 SEPTAL THICKNESS 0.8 0.6-1.1 cm SEPTAL EXCURSION 0.4 0.3-0.8 cm LVPW THICKNESS 0.8 0.6-1.1 cm LVPW EXCURSION 0.8 0.9-1.4 cm MINOR AXIS FS 33 25%-40% RT VENTRICLE: RVID (ED) 1.8 0.9-2.6 cm(up to 3cm if LLD) QUALITATIVE DOPPLER FLOW STUDIES MITRAL VALVE -- AORTIC VALVE -- TRICUSPID VALVE TR, probably mild (1+). PULMONIC VALVE WY, probably mild (1+). QUANTITATIVE DOPPLER FLOW STUDIES SAMPLE SITES VELOCITIES PEAK PRESSURE VALVE AREA and/or VALVE WINDOW (PEAK,M/SEC) DROP (GRADIENT) PRESSURE HALF-TIME MV (Diastole) 1.0 (E) 0.8 (A) MV (Systole) -- AO (Diastole) -- AO (Systole) 1.2 TV (Systole) 2.4 PV (Systole) 0.8 PV (Diastole) 1.7 LINDA:melchor Job ID: [id number] Doc ID: [id number] Yung Hamilton MD
[2017-02-17] MEDS: predniSONE 20 MG TABLET PO SCH (09:40)
[2017-02-17] MEDS: FAMOTIDINE/PF 20 MG/2 ML VIAL IV SCH (09:40)
[2017-02-17] MEDS: NICOTINE 7 MG PATCH TOPICAL SCH (09:41)
[2017-02-17] MEDS: NEUTRA PHOS 1 PACKET PO SCH (09:41)
--- NOTE | 2017-02-17 11:16 | Discharge Summary ---
Medical - DS: Prov Patient information: Note initiated : 02/17/17 at 11:06 am Service Date, if different from initiated Date: [] Patient: Jackie Beth 26 y/o F admitted on 02/14/17 for difficulty breathing/cough. Chief Complaint: [] Date of admission: 02/14/17 18:38 Discharge date: 02/17/17 Primary care physician: Miko Hardy ttelephone #[phone] Admitting clinician: Ej Krishnan Attending physician on discharge: Myrna Hightower Medical - DS: Meds - Discharge Medications Prescriptions: Albuterol Sulfate 1.25 mg IH Q4HP PRN #60 ml PRN Reason: Shortness Of Breath Or Wheezing Albuterol Sulfate [Proair Hfa] 2 puff IH Q6 PRN #1 hfa.aer.ad PRN Reason: Wheezing Doxycycline Monohydrate 100 mg PO BID #14 tab FLUoxetine HCL [Prozac] 20 mg PO QDAY #30 cap Fluticasone/Salmeterol [Advair 250-50 Diskus] 1 puff INH BID #1 inhaler guaiFENesin/CODEINE [Robitussin AC] 5 ml PO Q4HP PRN #120 ml PRN Reason: Cough Inhaler, Assist Devices [E-Z Spacer] 1 each IH QIDP PRN #1 spacer PRN Reason: Shortness Of Breath Or Wheezing Nicotine [Nicoderm] 7 mg TOPICAL DAILY@1000 #14 patch predniSONE [Prednisone] 10 mg PO QAMCC #20 tab traMADol [Ultram] 50 mg PO Q4-6HP PRN #30 tab PRN Reason: Pain Active and Home Medications: Home Medications Albuterol Sulfate [Proair Hfa] 2 puff IH Q6 PRN #1 hfa.aer.ad 11/13/16 [Rx Confirmed 02/14/17 Last Taken Unknown] fluoxetine 20 mg capsule 20 mg PO QDAY #90 cap 12/17/16 [Rx Confirmed 02/14/17 Last Taken Unknown] Prednisone -- taper from 40 mg a day x 2 days, 30 x 2 days, 20 x 2 days, 10 x 2 days Medical - DS: Hosp Hospital course: Ms. Beth is a 26 year old female february 14, 2017: History of present illness Ms. Beth is a 26 year old female with no known h/o asthma, presents to the ER with shortness of breath, chest tightness, cough and palpitations. The patient notes her symptoms have been going on for last 2 months. 6 weeks ago she was diagnosed with PNA and her symptoms somewhat improved after treatment. She did not complete the course for pna, and nearly a week or two later her symptoms started to come back up again. The patient's symptoms progressively got worse and therefore she decided to come to the ER. her main symptom is shortness of breath associated with chest tightness and wheezing. This is accompanied by cough which is intermittent and she occasionally brings up whitish sputum. The patient has ventolin which somewhat helps. She has also been prescribed a symbicort inhaler by her doctor. symptoms likely worse by grass, but she does not report any other allergies. Patient denies h/o any allergies, change in any perfumes, she has pets which she does not think she is allergic too, no h/o asthma in the family. no change in job or any other exposure. In the ER she was tachcyardic, wheezing and hypoxic, she had a neg x ray and unremarkable labs, She received IV steroids, duonebs and terbutaline in the ER. The patient will be admitted to hospital for further management. February 17, 2017: Hospital course: he patient was admitted and treated for an asthma exacerbation with IV and then by mouth steroids, frequent albuterol and ipratropium nebulizers. er wheezing and shortness of breath have been rather slow to respond to treatment. She has also remained quite tachycardic throughout her stay, and things that she is always tachycardic whenever anyone checks her pulse. On admission, her PO2 on room air was quite low at 59. A d-dimer was checked which was normal, and therefore ruled againstPEs. She was on control for 3 years, but quit approximately 2 years ago. She has been a smoker, but says she rarely smokes more than one to 2 cigarettes per day, since November of this year. Her cough is now productive of greenish phlegm. She is having fairly severe coughing spasms, and is now complaining of pain and soreness in her entire thorax from the coughing. She also has chronic pain, and all of the coughing has aggravated the pain. He has been managed with Tylenol and tramadol. Because it was unclear why the patient remains tachycardiac and so symptomatic in general, the d-dimer thyroid studies, and an echocardiogram were ordered. These were all essentially within normal limits. On her CBC, she did bump her white blood cell count, possibly due to steroids, but has also maintained a fairly high eosinophil count. She may well have a reactive airways disease exacerbation due to allergies, possibly to all the pollen in the air. otherwise, today she denies fever or chills, sore throat palpitations, abdominal pain, nausea or vomiting, diarrhea or constipation, dysuria. he continues to have fairly significant dyspnea with exertion and wheezing but O2 saturations on room air, with ambulation, remain above 90%.. on exam, she is a well-developed well-nourished young woman in no acute distress. Neck is supple without obvious lymphadenopathy or JVD Cardiac exam shows regular rate and rhythm, with a tachycardic rate. Lung exam; Shows diffuse soft wheezes throughout both lung muniz. No accessory muscle use is noted Abdomen is soft and nontender. Extremities show no cyanosis, clubbing, edema.Neurologic exam is grossly nonfocal. assessment and plan: #1. Dyspnea and tachycardia. likely Acute asthma exacerbation: Treated with Steroids, duonebs. this patient had a markedly elevated eosinophil count on arrival, so may have had an allergic reaction to something inhaled. her prolonged course of shortness of breath and recurrent significant hypoxia, are bit worrisome. however,she is showing some gradual improvement. She will continue on an oral prednisone taper, and I will add Advair inhaler [id number] 1 puff twice a day We will also add an albuterol inhaler with a spacer device, to use every 4 hours when necessary. If her lung symptoms do not settle down quickly, I have suggested she follow-up with a new pulmonary doctorthat is now in town. She should absolutely avoid cigarette smoking. #2.Back pain and now chest discomfort related to coughing.:continue steroids, Tylenol, tramadol. -tussin with codeine for her cough. #3. Cardiac. -Persistent tachycardia, and what sounds like chronic tachycardia. BNP is mildly elevated. Thyroid studies were essentially normal. Echocardiogram was read as normal. t some point, she may want to visit with a level vial setter, to assess risk for tachycardia-induced heart failure. #4.Anxiety/ PTSD: off medications, was supposed to be on fluoxetine. i find that fluoxetine can be a little overstimulating. she may want to try something different for anxiety such as Paxil or celexa with or without BuSpar.. #5.DVT prophylaxis:hep sq Diet regular #6.full code. #7. Reported past history of drug use. This may or may not impact her current symptoms. this visit has taken approximately 35 minutes today, to review test results, interview and examine the patient, review plan of care with respiratory staff, nursing staff, multidisciplinary team meeting, and write orders. Discharge diagnosis: a severe asthma exacerbation,tachycardia of uncertain cause anxiety - Time Spent with Patient Total time spent providing and/or coordinating discharge services: Medical - DS: Exam - Constitutional Vitals: Vital Signs Temp Pulse Pulse Resp BP Pulse Ox 02/17/17 07:19 95 02/17/17 07:18 97.9 F 18 131/90 95 02/17/17 07:16 100 H 20 02/17/17 07:14 96 02/17/17 03:08 97.9 F 105 H 24 H 131/90 94 02/16/17 23:06 110 H 16 02/16/17 23:02 97.8 F 94 H 24 H 127/84 97 02/16/17 19:27 112 H 16 02/16/17 19:23 98 02/16/17 19:18 98.2 F 96 H 28 H 132/84 94 02/16/17 16:00 97.7 F 20 129/83 93 02/16/17 15:38 123 H 16 02/16/17 15:36 96 02/16/17 12:00 97.6 F 22 132/76 93 Intake and Output 02/16/17 02/17/17 02/17/17 21:59 05:59 13:59 Intake Total 740 / 740 1188 / 1188 Output Total 375 / 375 700 / 700 Balance 365 / 365 488 / 488 Intake: IV 913 / 913 Sodium Chloride 0.9% 1, 913 / 913 000 ml @ 75 mls/hr IV . [id number] [facility] Rx#:[id number] Oral 740 / 740 275 / 275 Output: Void Amount 375 / 375 700 / 700 Other: Meal Dinner Percent of Meal Consumed 100% Feeding Ability Independent # Voids 1 Weight 169 lb Medical - DS: Data Labs on day of discharge: Labs from last 24 hours 02/17/17 02/17/17 02/17/17 04:10 04:10 04:10 WBC RBC Hgb Hct MCV MCH MCHC RDW Plt Count MPV Gran % Lymph % (Auto) Rogers % (Auto) Eos % (Auto) Baso % (Auto) Gran # Lymph # Rogers # Eos # Baso # D-Dimer Sodium 140 Potassium 3.6 Chloride 105 Carbon Dioxide 22 Anion Gap 13.0 BUN 9 Creatinine 0.7 GFR Calculation 121 Glucose 96 Uric Acid 3.1 Calcium 8.2 L Ionized Calcium Autumn 1.20 Phosphorus 3.5 Magnesium 1.8 Total Bilirubin 0.3 Direct Bilirubin < 0.2 GGT 10 AST 18 ALT 15 Alkaline Phosphatase 54 Lactate Dehydrogenase 182 Total Protein 5.8 L Albumin 3.4 Globulin 2.4 Albumin/Globulin Ratio 1.4 Triglycerides 79 Free T4 1.30 Free T3 pg/mL 2.6 02/17/17 02/16/17 04:10 11:12 WBC 11.2 H RBC 4.04 Hgb 12.8 Hct 38.3 MCV 94.9 MCH 31.6 MCHC 33.3 RDW 13.5 Plt Count 272 MPV 9.2 Gran % 53.8 Lymph % (Auto) 30.3 Rogers % (Auto) 6.9 Eos % (Auto) 8.5 H Baso % (Auto) 0.5 Gran # 6.0 Lymph # 3.4 Rogers # 0.8 Eos # 0.9 H Baso # 0.1 D-Dimer < 0.27 Sodium Potassium Chloride Carbon Dioxide Anion Gap BUN Creatinine GFR Calculation Glucose Uric Acid Calcium Ionized Calcium Autumn Phosphorus Magnesium Total Bilirubin Direct Bilirubin GGT AST ALT Alkaline Phosphatase Lactate Dehydrogenase Total Protein Albumin Globulin Albumin/Globulin Ratio Triglycerides Free T4 Free T3 pg/mL heart rates are varying from 99-135 today. lactic acid was normal at 1.0 D-dimer is normal at less than 0.27 BNP is minimally elevated at 239 TSH is normal at 0.38 Although this may be a bit suppressed urine hCG was negative. Echocardiogram : ventricles appeared normal. LVEF was 60%. This was read as a normal study. February 14: ABG on room airshowed pH 7.43, CO2 of 35, PO2 of 59, bicarbonate of 23, O2 saturation 91% February 14: Chest x-ray was read as normal. Medical - DS: A/P - Patient/Caregiver Discharge Instructions Activity: increase activity as tolerated Diet: Regular Diet Additional Instructions: #1. Asthma exacerbation. -We will start you on an Advair inhaler This is a powder inhaler. Please read directions carefully. He will open the inhaler, and then slowly inhale and hold your breath for as many seconds as her comfortable. Do this twice a day. Your albuterol inhaler which you should use with a spacer/chamber device. Shaking the inhaler, and then squirt the medication into the chamber Then breathe off the other and, like it is a pipe, slowly inhaling the medication throughout your lungs, and then hold your breath as long as his comfortable. You can use 2 puffs of albuterol every 4 hours as needed for shortness of breath or wheezing. Begin the doxycycline, twice a day for one week, to help clear up her bronchitis. you can also use Robitussin with codeine, to help settle the cough down. -you will also continue on oral prednisone 10 mg. Please take 40 mg a day for 2 days, then cut down to 30 mg for 2 days then decrease to 20 mg for 2 days, then decrease to 10 mg for 2 days, then stop. Please arrange for a follow-up appointment with her primary care physician next week, to review your progress. #2. Anxiety. My understanding is that you have taken Prozac in the past. You can continue with this, or ask your primary care provider to give you a different antidepressant that may cause less anxiety, such as Celexa or Paxil, with or without BuSpar. #3. Persistent tachycardia. He may want to be referred to a level vial setter to see if this needs to be looked into further. #4. There is a new bioinformatics support specialist in town now. If your asthma does not settle down, please seek a referral to him for further evaluation. Dr Key (P) [phone] [address], [place]. If you have increased breathing problems then call 911 if an emergency or come back to the Emergency room if needed. If you develop a fever with chills or shaking then return to the Emergency room to be checked. Prescriptions: Albuterol Sulfate 1.25 mg IH Q4HP PRN #60 ml PRN Reason: Shortness Of Breath Or Wheezing Albuterol Sulfate [Proair Hfa] 2 puff IH Q6 PRN #1 hfa.aer.ad PRN Reason: Wheezing Doxycycline Monohydrate 100 mg PO BID #14 tab FLUoxetine HCL [Prozac] 20 mg PO QDAY #30 cap Fluticasone/Salmeterol [Advair 250-50 Diskus] 1 puff INH BID #1 inhaler guaiFENesin/CODEINE [Robitussin AC] 5 ml PO Q4HP PRN #120 ml PRN Reason: Cough Inhaler, Assist Devices [E-Z Spacer] 1 each IH QIDP PRN #1 spacer PRN Reason: Shortness Of Breath Or Wheezing Nicotine [Nicoderm] 7 mg TOPICAL DAILY@1000 #14 patch predniSONE [Prednisone] 10 mg PO QAMCC #20 tab traMADol [Ultram] 50 mg PO Q4-6HP PRN #30 tab PRN Reason: Pain - Follow up Plan Follow up with: Miko Hardy PA-C [Primary Care Provider] - 02/23/17 1:00 pm Ej Krishnan MD [Physician] - Disposition: Home, Self-Care Prognosis: Good Rehab Potential: Good Overall status at discharge: patient is progressing back to baseline Medical - DS: Qual - VTE Deep Vein Thrombosis/Pulmonary Embolism Present on Admission: No
== END 2017-02-17 14:20 | disposition home or self-care (01) ==
LOC: MEDSUR 15:03 → ED 15:03 → MEDSUR 18:30 → SUATTDRO 18:38
PROVIDERS: ADMIT Internal Medicine; ATTEND Internal Medicine

== ENCOUNTER 2017-04-29 19:13 | Inpatient (IN) ==
[2017-04-29] MEDS ORDERED: IPRATROPIUM/ALBUTEROL 3 ML AMPUL.NEB NEB ONE ×3 (19:41→21:07)
[2017-04-29] MEDS ORDERED: BENZONATATE 100 MG CAPSULE PO ONE (20:46)
[2017-04-29] MEDS ORDERED: 0.9 % SODIUM CHLORIDE 1,000 ML IV ONE ×2 (20:49→22:34)
[2017-04-29] MEDS ORDERED: predniSONE 20 MG TABLET ONE (20:49)
[2017-04-29] MEDS ORDERED: ALBUTEROL SULFATE 5 MG/ML NEB SOLUTION BOTTLE NEB ONE (20:57)
--- NOTE | 2017-04-29 21:01 | Emergency Department Note ---
SOB HPI - General Chief Complaint: Shortness of Breath/Dyspnea Stated Complaint: SOB, cough Time Seen by Provider: 04/29/17 19:26 Source: patient Mode of arrival: ambulatory Limitations: no limitations - History of Present Illness Developed a pneumonia in December and has had reactive, asthmatic-like responses intermittently ever since. These have been quite severe. She stopped smoking in December. She has had multiple courses of prednisone. Today her respirations became so labored that she was fearful and came here. She is wheezy from the doorway. She is currently taking Qvar and a JUVENCIO only. No LABA, LAMA Complaint: shortness of breath, "asthma attack" Onset (ago): day(s) (ongogin for days "it comes back" There are three times a day today when I couldn't breathe at all") Context: recent illness, smoke/fume exposure Severity: severe, similar to previous episodes Consistency/Duration: constant Improves with: nothing Worsens with: exertion, movement, coughing Known history of: asthma Associated symptoms: Reports: pain with inspiration, cough, wheezing. Denies: rash Treatment prior to arrival: bronchodilator - Related Data Home oxygen amount: none Previous Rx's Medication Instructions Recorded Acetaminophen [Tylenol] 650 mg PO Q6HP PRN tab 02/17/17 Albuterol Sulfate 1.25 mg IH Q4HP PRN #60 ml 02/17/17 Fluticasone/Salmeterol [Advair 1 puff INH BID #1 inhaler 02/17/17 250-50 Diskus] Inhaler, Assist Devices [E-Z 1 each IH QIDP PRN #1 spacer 02/17/17 Spacer] guaiFENesin/CODEINE [Robitussin AC] 5 ml PO Q4HP PRN #120 ml 02/17/17 albuterol sulfate HFA 90 2 puff INHALATION Q6 PRN #1 04/27/17 mcg/actuation aerosol inhaler [email or web address].ad escitalopram 20 mg tablet 20 mg PO QDAY #90 tab 04/27/17 montelukast 10 mg tablet 10 mg PO QHS #30 tab 04/27/17 Allergies Allergy/AdvReac Type Severity Reaction Status Date / Time No Known Drug Allergies Allergy Verified 04/29/17 19:16 Review of Systems All systems ED: reviewed and negative except as stated. Constitutional: Denies: fever, chills Eyes: Denies: eye pain ENT ED: Denies: ear pain, throat pain Cardiovascular: Reports: dyspnea on exertion. Denies: chest pain Respiratory: Reports: cough, wheezes, stridor Gastrointestinal: Denies: abdominal pain, nausea, vomiting Genitourinary: Denies: urgency, dysuria Musculoskeletal: Denies: back pain Integumentary: Denies: rash Neurological: Reports: headache Psychiatric: Reports: anxiety Endocrine: Denies: fatigue Hematological/Lymphatic: Denies: easy bleeding Allergic/Immunologic: Denies: facial swelling Past Medical History - Past Medical History Medical history: Reports: no medical history, other (They "said it was asthma but it keeps coming back") Surgical history ED: Reports: tonsillectomy, other (wisdom teeth) Psychiatric history: Reports: anxiety, depression - Social History Alcohol use: Reports: Occasionally Drug use: Reports: unknown Physical Exam - General Limitations: no limitations General appearance: alert, in distress - Head Head exam: atraumatic, normocephalic - Eye Eye exam: Present: normal appearance. Absent: scleral icterus, conjunctival injection - ENT ENT exam: mucous membranes moist - Neck Neck exam: Present: normal inspection, trachea midline. Absent: lymphadenopathy - Chest Chest inspection: Present: normal inspection, symmetric chest wall rise - Respiratory Respiratory exam: Present: respiratory distress, wheezes, accessory muscle use, other (lung sounds very tight, wheezy insp and exp. Improve slightly with nebs but decline rapidly after neb ceases) - Cardiovascular Cardiovascular exam: Present: regular rate, tachycardia - Abdominal Exam Abdominal exam: Present: soft. Absent: distention, tenderness - Extremities Exam Extremities exam: Present: normal inspection, full ROM, normal capillary refill. Absent: pedal edema - Back Exam Back exam: Absent: CVA tenderness (R), CVA tenderness (L) - Neurological Exam Neurological exam: Present: alert, oriented X3, CN II-XII intact - Psychiatric Psychiatric exam: Present: anxious - Skin Skin exam: Present: warm, dry. Absent: cyanosis, diaphoresis, mottled Course Course Narrative: Did not repsond well to treatmen in ER. Will be admitted by Dr Carvajal Vital Signs Temperature 97.0 F 04/29/17 19:14 Pulse Rate 135 H 04/29/17 19:14 Respiratory Rate 28 H 04/29/17 19:14 Blood Pressure 128/87 04/29/17 19:14 Pulse Oximetry (%) 92 04/29/17 19:14 Temperature 97.0 F 04/29/17 19:14 Pulse Rate 126 H 04/29/17 21:31 Respiratory Rate 21 04/29/17 21:31 Blood Pressure 119/90 04/29/17 21:31 Pulse Oximetry (%) 87 L 04/29/17 21:31 Shortness of Breath/Dyspnea - [facility] Narrative Medical decision making narrative: Patient has significant wheezing. Hyperresonance. No noted crackles, no consolidation. Chest x-ray is negative save some hyperinflation. No infiltrates are noted. Despite DuoNeb which was initially quite effective for her she worsened over. Of about 20 minutes after the DuoNeb and was moved to an emergency room. She was given 60 mg of prednisone orally and started on 10 mg of albuterol over an hour. Labs are pending. Oxygen is given via nasal cannula. She is medicated with Tessalon Perls as well. Did not respond adequately to treatment in the ER. She will be admitted for acute asthmatic reaction. - Lab Data Result diagrams: 04/29/17 20:56 04/29/17 20:56 Lab Results 04/29/17 Range/Units 20:56 Band Neutrophils % Not Reportable Disposition Pt seen by UNIX ANALYST/PA only: Yes Clinical Impression: Asthma with exacerbation Disposition: [facility] Additional Instructions: transfer to medical bed [facility] Referrals: Miko Hardy PA-C [Primary Care Provider] -
[2017-04-29] MEDS ORDERED: predniSONE 20 MG TABLET PO ONE (21:07)
[2017-04-29 21:37] LABS: Mean Cell Volume 90.8 fL (80.0-100.0); Mean Corpuscular HGB Conc 34.1 g/dL (31.0-36.0); Platelet Count 324 K/mcL (140-440); RBC 5.25 M/mcL (4.00-5.20); Red Cell Distribution Width 12.2 % (11.5-14.5)
--- NOTE | 2017-04-29 21:38 | Emergency Department Note ---
SOB HPI - General Chief Complaint: Shortness of Breath/Dyspnea Stated Complaint: SOB, cough Time Seen by Provider: 04/29/17 19:26 Source: patient Mode of arrival: ambulatory Limitations: no limitations - History of Present Illness Discussed this patient with Myrna MITCHELL. Severity: severe, similar to previous episodes Improves with: nothing Worsens with: exertion, movement, coughing Associated symptoms: Reports: pain with inspiration, cough, wheezing. Denies: rash Treatment prior to arrival: bronchodilator - Related Data Home oxygen amount: none Previous Rx's Medication Instructions Recorded Acetaminophen [Tylenol] 650 mg PO Q6HP PRN tab 02/17/17 Albuterol Sulfate 1.25 mg IH Q4HP PRN #60 ml 02/17/17 Fluticasone/Salmeterol [Advair 1 puff INH BID #1 inhaler 02/17/17 250-50 Diskus] Inhaler, Assist Devices [E-Z 1 each IH QIDP PRN #1 spacer 02/17/17 Spacer] guaiFENesin/CODEINE [Robitussin AC] 5 ml PO Q4HP PRN #120 ml 02/17/17 albuterol sulfate HFA 90 2 puff INHALATION Q6 PRN #1 04/27/17 mcg/actuation aerosol inhaler hfa.aer.ad escitalopram 20 mg tablet 20 mg PO QDAY #90 tab 04/27/17 montelukast 10 mg tablet 10 mg PO QHS #30 tab 04/27/17 Allergies Allergy/AdvReac Type Severity Reaction Status Date / Time No Known Drug Allergies Allergy Verified 04/29/17 19:16 Review of Systems Constitutional: Denies: fever, chills Eyes: Denies: eye pain ENT ED: Denies: ear pain, throat pain Cardiovascular: Reports: dyspnea on exertion. Denies: chest pain Respiratory: Reports: cough, wheezes, stridor Gastrointestinal: Denies: abdominal pain, nausea, vomiting Genitourinary: Denies: urgency, dysuria Musculoskeletal: Denies: back pain Integumentary: Denies: rash Neurological: Reports: headache Psychiatric: Reports: anxiety Endocrine: Denies: fatigue Hematological/Lymphatic: Denies: easy bleeding Allergic/Immunologic: Denies: facial swelling Past Medical History - Past Medical History Medical history: Reports: no medical history, other (They "said it was asthma but it keeps coming back") Surgical history ED: Reports: tonsillectomy, other (wisdom teeth) Psychiatric history: Reports: anxiety, depression - Social History Alcohol use: Reports: Occasionally Drug use: Reports: unknown Physical Exam After the first breathing treatment I briefly evaluated this patient she had persistent wheezing and a tight Cough. I reexamined her after 1 hour of continuous albuterol neb, she continued to have refractory wheezing and hypoxia - General Limitations: no limitations General appearance: alert, in distress Course Vital Signs Temperature 97.0 F 04/29/17 19:14 Pulse Rate 135 H 04/29/17 19:14 Respiratory Rate 28 H 04/29/17 19:14 Blood Pressure 128/87 04/29/17 19:14 Pulse Oximetry (%) 92 04/29/17 19:14 Temperature 97.4 F 04/29/17 22:25 Pulse Rate 108 H 04/29/17 22:25 Respiratory Rate 22 04/29/17 22:25 Blood Pressure 121/79 04/29/17 22:25 Pulse Oximetry (%) 91 04/29/17 22:25 Shortness of Breath/Dyspnea - Lab Data Lab results reviewed: Yes I reviewed the patient's lab results. Result diagrams: 04/29/17 20:56 04/29/17 20:56 Lab Results 04/29/17 04/29/17 Range/Units 20:56 20:56 WBC 15.5 H (4.5-11.0) K/mcL RBC 5.25 H (4.00-5.20) M/mcL Hgb 16.3 H (12.0-15.0) g/dL Hct 47.7 (36.0-48.0) % MCV 90.8 (80.0-100.0) fL MCH 31.0 (26.0-34.0) pg MCHC 34.1 (31.0-36.0) g/dL RDW 12.2 (11.5-14.5) % Plt Count 324 (140-440) K/mcL MPV 9.0 (7.4-10.4) fL Total Counted 100 Seg Neutrophils % 44 (38-78) % Band Neutrophils % 1 (0-10) % Lymphocytes % 20 (15-49) % Monocytes % (Manual) 2 (1-12) % Eosinophils % (Manual) 33 H (0-7) % Platelet Estimate Normal (NORMAL) RBC Morphology Normal (NORMAL) Sodium 140 (133-145) mmol/L Potassium 4.0 (3.3-5.1) mmol/L Chloride 103 (96-108) mmol/L Carbon Dioxide 22 (22-30) mmol/L Anion Gap 15.0 (8-16) BUN 9 (6-20) mg/dl Creatinine 0.7 (0.6-1.1) mg/dl GFR Calculation 121 Glucose 82 (70-105) mg/dL Calcium 8.8 (8.6-10.4) mg/dl Total Bilirubin 0.5 (0.0-1.0) mg/dL AST 18 (0-37) U/l ALT 17 (0-40) U/l Alkaline Phosphatase 68 (39-117) U/L Total Protein 7.4 (5.9-8.4) gm/dL Albumin 4.1 (3.2-5.2) gm/dL Globulin 3.3 (2.2-3.7) gm/dL Albumin/Globulin Ratio 1.2 (1.0-2.3) Arterial blood gas shows pH 7.43 PCO2 36 PO2 57 not on oxygen - Radiology Data Radiology results reviewed: Yes I reviewed the patient's radiology results. Chest x-ray shows hyperinflation consistent with asthma exacerbation Disposition Pt seen by HOSPITAL SOCIAL WORKER/PA only: No Clinical Impression: Asthma with exacerbation Qualifiers: Asthma severity: unspecified severity Qualified Code(s): J45.901 - Unspecified asthma with (acute) exacerbation Summary: After discussion with Myrna Ovalles I also discussed the case with Dr. Krishnan. As she has episodes of hypoxia and severe wheezing with minimal improvement after 2 nebulizer treatments I do think she needs to come in the hospital for further care-[address] Krishnan agreed to accept patient Disposition: [facility] Condition: Serious
[2017-04-29 22:00] LABS: ALT/SGPT 17 U/l (0-40); Albumin 4.1 gm/dL (3.2-5.2); Albumin/Globulin Ratio 1.2 (1.0-2.3); Alkaline Phosphatase 68 U/L (39-117); Blood Urea Nitrogen 9 mg/dl (6-20)
[2017-04-29 22:04] LABS: Band Neutrophils % 1 % (0-10); Eosinophils % (Manual) 33 % (0-7); Lymphocytes % 20 % (15-49); Monocytes % (Manual) 2 % (1-12); Platelet Estimate NORMAL (NORMAL); RBC Morphology NORMAL (NORMAL); Segmented Neutrophils % 44 % (38-78)
[2017-04-29] MEDS ORDERED: AZITHROMYCIN 250 MG TABLET PO ONE (22:34)
[2017-04-29] MEDS ORDERED: ACETAMINOPHEN 325 MG TABLET PO PRN (22:34)
[2017-04-29] MEDS ORDERED: ONDANSETRON 4 MG/2 ML VIAL IV PRN (22:34)
[2017-04-29] MEDS ORDERED: MAGNESIUM HYDROXIDE 30 ML ORAL.SUSP PO PRN (22:34)
[2017-04-29] MEDS: IPRATROPIUM/ALBUTEROL 3 ML AMPUL.NEB NEB SCH (23:17)
--- NOTE | 2017-04-29 23:46 | Internal Med History&Physical ---
Medical - H&P: HPI Patient information: Note initiated : 04/29/17 at 11:43 pm Service Date, if different from initiated Date: [] Patient: Jackie Beth a 26 y/o F admitted on 04/29/17 for SOB, cough. Chief Complaint: [] History of present illness: Ms. Beth is a 26 year old female with history of asthma. 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 The patient's shortness of breath is associated with cough, decreased effort tolerance, subjective sensations of chills, wheezing, and chest pain with deep inspiration. Shortness of breath is better with rest. The patient also reports that her shortness of breath gets worse when she takes a hot shower. She thinks that humidity makes it worse. the cough is reported as dry,she notes that there is sometimes back pain associated with coughing. The patient reports that the symptoms overall started at the beginning of the year,but she started to have shortness of breath. The patient has been admitted to the hospital once somewhere around JANUARY or FEBRUARY for asthma exacerbation. She has also been to the ED a few times. Later on. The patient denies any history of intubation because of asthma. The patient has a few pets in her house, but reports that that do not bother her , she had strong history of smoking, smoked for 8 years, quit this FEBRUARY. Denies any family history of asthma,notes that her mother had history of pulmonary hypertension and diabetes. She denies any other recreational drugs. Denies any use of alcohol. Denies any occupational exposure to smoke, however, does agree that whenever she is working with chemicals or asthma with flareup. All systems: reviewed and no additional remarkable complaints except as stated ( as per HPI) Medical - H&P: [facility] Medical history: Medical History (Last Updated 04/29/17 @ 23:19 by Duane Carvajal MD) Vaginal discharge (Acute) Pelvic pain (Acute) Viral syndrome (Acute) Urinary tract infection (Acute) Influenza (Acute) Acute neck sprain (Acute) Rotator cuff (capsule) sprain (Acute) Upper respiratory infection (Acute) Bronchitis (Acute) Post traumatic stress disorder (Chronic) Hematochezia (Chronic) Drug abuse (Chronic) Depression (Chronic) Anxiety (Chronic) Surgical history: Past Surgical History (Last Updated 02/05/17 @ 14:12 by [employer] [place]) History of wisdom tooth extraction (Chronic) History of tonsillectomy (Chronic) Status post right foot surgery (Chronic) History of colonoscopy (Chronic) Family history: reviewed and not pertinent Social history: ex smoker (quit february this month) denies etoh, or other recreational substances. Medical - H&P: Meds Home Medications Medication Instructions Recorded Confirmed Type Acetaminophen [Tylenol] 650 mg PO Q6HP PRN tab 02/17/17 04/27/17 Rx Albuterol Sulfate 1.25 mg IH Q4HP PRN #60 ml 02/17/17 04/27/17 Rx Fluticasone/Salmeterol [Advair 1 puff INH BID #1 inhaler 02/17/17 04/27/17 Rx 250-50 Diskus] Inhaler, Assist Devices [E-Z 1 each IH QIDP PRN #1 spacer 02/17/17 04/27/17 Rx Spacer] guaiFENesin/CODEINE [Robitussin AC] 5 ml PO Q4HP PRN #120 ml 02/17/17 04/27/17 Rx albuterol sulfate HFA 90 2 puff INHALATION Q6 PRN #1 04/27/17 04/27/17 Rx mcg/actuation aerosol inhaler hfa.aer.ad escitalopram 20 mg tablet 20 mg PO QDAY #90 tab 04/27/17 04/27/17 Rx montelukast 10 mg tablet 10 mg PO QHS #30 tab 04/27/17 04/27/17 Rx Allergies Allergy/AdvReac Type Severity Reaction Status Date / Time No Known Drug Allergies Allergy Verified 04/29/17 19:16 Medical - H&P: Exam - Constitutional Vitals: Temp Pulse Resp BP Pulse Ox 97.4 F 108 H 20 121/79 95 04/29/17 22:25 04/29/17 23:18 04/29/17 23:18 04/29/17 22:25 04/29/17 23:18 Exam: GENERAL: The patient is a well-developed, well-nourished in no apparent distress. Is alert and oriented x3. VITAL SIGNS: Reviewed and as noted elsewhere. HEENT: Head is normocephalic and atraumatic. Extraocular muscles are intact. Pupils are equal, round, and reactive to light. Nares appeared normal. Mouth appears any without lesions. Mucous membranes are moist. NECK: Normal to inspection, Supple, No lymphadenopathy or thyromegaly. LUNGS: Air entry equal on both sides, bilateral wheezing, prolonged expiratory phase, the patient is able to speaks full sentences, there is no accessory muscle use. HEART: Regular rate and rhythm normal, S1 and S2 heard, no Gallop, S3 or Rub Noted, No Gross murmur heard. ABDOMEN: Soft, nontender, and nondistended. Positive bowel sounds. No hepatosplenomegaly was noted. EXTREMITIES: No cyanosis, clubbing, rash, lesions or edema. NEUROLOGIC: Cranial nerves II through XII are grossly intact. Motor and Sensory System Grossly Intact PSYCHIATRIC: Normal affect, Normal Mood. Appropriate Behavior. SKIN: No ulceration or wounds noted, No jaundice, No rash noted. Medical - H&P: Reslt - Labs CBC & Chem 7: 04/29/17 20:56 04/29/17 20:56 Medical - H&P: A/P - Narrative A/P Narrative: A/P Acute hypoxic resp failure Acute asthma exacerbation h/o PTSD, Anxiety Tobacco abuse Plan Patient clinically doing well once on the floor, able to speak full sentences but still is wheezing PO prednisone for now, Zithromax and dunoebs, monitor on tele given new hypoxia. continue home medication pt is quit smoking now, reinforced need to not go back. DVT hep sq Diet Regular Full code Medical - H&P: Qual - VTE Deep Vein Thrombosis/Pulmonary Embolism Present on Admission: No
[2017-04-30] MEDS: MONTELUKAST 10 MG TABLET PO SCH ×2 (00:28→22:10)
[2017-04-30] MEDS: IPRATROPIUM/ALBUTEROL 3 ML AMPUL.NEB NEB SCH ×4 (02:57→14:48)
[2017-04-30] MEDS ORDERED: IPRATROPIUM/ALBUTEROL 3 ML AMPUL.NEB NEB ONE (03:00)
--- NOTE | 2017-04-30 05:11 | XRay Report ---
CLINICAL INFORMATION: Reason for Exam:coughing COMPARISON: 03/22/2017 FINDINGS:The heart size, mediastinum and pulmonary vessels are unremarkable. The lungs are clear. There are no effusions. The bones and soft tissues are within normal limits. IMPRESSION: Normal chest. Interpreted and Authenticated by: Chris Box 04/30/17
[2017-04-30] MEDS: HYDROcodone/APAP 5/325MG TABLET PO PRN ×2 (06:52→19:25)
[2017-04-30] MEDS: predniSONE 20 MG TABLET PO SCH (07:03)
[2017-04-30] MEDS: HEPARIN 5,000 UNIT/ML VIAL SQ SCH ×2 (09:33→22:10)
[2017-04-30] MEDS: ESCITALOPRAM 20 MG TABLET PO SCH (09:33)
[2017-04-30] MEDS: FAMOTIDINE/PF 20 MG/2 ML VIAL IV SCH ×2 (09:33→22:10)
[2017-04-30] MEDS: AZITHROMYCIN 250 MG TABLET PO SCH (09:33)
[2017-04-30 10:00] LABS: Basophils # (Auto) 0 K/mcL (0.0-0.3); Basophils % (Auto) 0.1 % (0.0-2.0); Eosinophils # (Auto) 0.1 K/mcL (0.0-0.7); Eosinophils % (Auto) 0.6 % (0.0-7.0); Granulocytes % (Auto) 89.6 % (38.0-78.0); Lymphocytes # (Auto) 0.7 K/mcL (1.5-4.8); Lymphocytes % (Auto) 7.1 % (15.5-49.0); Mean Cell Volume 90.7 fL (80.0-100.0); Mean Corpuscular HGB Conc 34.6 g/dL (31.0-36.0); Mean Corpuscular Hemoglobin 31.4 pg (26.0-34.0); Monocytes # (Auto) 0.2 K/mcL (0.1-0.9); Monocytes % (Auto) 2.6 % (1.0-12.0); Platelet Count 345 K/mcL (140-440); RBC 4.84 M/mcL (4.00-5.20); Red Cell Distribution Width 12.3 % (11.5-14.5)
[2017-04-30 10:07] LABS: Blood Urea Nitrogen 11 mg/dl (6-20)
--- NOTE | 2017-04-30 11:09 | Internal Med Progress Note ---
Medical - PN: Subj Patient information: Note initiated : 04/30/17 at 11:07 am Service Date, if different from initiated Date: [] Patient: Jackie Beth a 26 y/o F admitted on 04/29/17 for SOB, cough. Chief Complaint: [] Interval history: Ms. Beth is a 26 year old female with history of asthma. 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 The patient's shortness of breath is associated with cough, decreased effort tolerance, subjective sensations of chills, wheezing, and chest pain with deep inspiration. Shortness of breath is better with rest. The patient also reports that her shortness of breath gets worse when she takes a hot shower. She thinks that humidity makes it worse. the cough is reported as dry,she notes that there is sometimes back pain associated with coughing. The patient reports that the symptoms overall started at the beginning of the year,but she started to have shortness of breath. The patient has been admitted to the hospital once somewhere around JANUARY or FEBRUARY for asthma exacerbation. She has also been to the ED a few times. Later on. The patient denies any history of intubation because of asthma. The patient has a few pets in her house, but reports that that do not bother her , she had strong history of smoking, smoked for 8 years, quit this FEBRUARY. Denies any family history of asthma,notes that her mother had history of pulmonary hypertension and diabetes. She denies any other recreational drugs. Denies any use of alcohol. Denies any occupational exposure to smoke, however, does agree that whenever she is working with chemicals or asthma with flareup. 04/30: patient seen and examined this morning, partner in the room with her. The patient notes that she still has soreness in the chest, still has shortness of breath. No longer requires oxygen, however minimal activity makes her very tachycardic. The exam today shows that she is still wheezing. But the symptoms are much better compared to yesterday. The patient denies any abdominal pain, had some nausea, no vomiting Pertinent ROS: Denies headache, dizziness Denies chest pain, palpitations, some chest soreness present improving cough and shortness of breath Denies abdominal pain,ome nausea present, no vomiting - Constitutional Vitals: Vital Signs Temp Pulse Resp BP Pulse Ox 99.6 F H 140 H 20 109/61 97 04/30/17 08:00 04/30/17 06:55 04/30/17 08:00 04/30/17 08:00 04/30/17 08:00 Period Temp Pulse Resp BP Sys/Gore Pulse Ox Last 24 Hr 99.6 F 96-140 20-24 109-117/61-64 91-97 Intake and Output 04/29/17 04/30/17 04/30/17 21:59 05:59 13:59 Intake Total 1400 / 1400 240 / 240 Balance 1400 / 1400 240 / 240 Intake & Output: Intake & Output 04/29/17 04/30/17 04/30/17 21:59 05:59 13:59 Intake Total 1400 / 1400 240 / 240 Balance 1400 / 1400 240 / 240 Intake: IV 1000 / 1000 Sodium Chloride 0.9% 1, 1000 / 1000 000 ml @ Wide Open IV BOLUS ONE Rx#:[id number] Oral 400 / 400 240 / 240 Other: Meal Breakfast Percent of Meal Consumed 100% # Voids 2 Exam: Constitutional; Afebrile, cooperative, alert, not in distress. Eyes- No icterus, , No periorbital swelling Ears- Ext ear normal, hearing normal to conversation. Neck- Midline trachea, supple Respiratory system: Air Entry equal on both sides, ilateral wheezing present, prolonged expiratory phase, improved than yesterday, speaking full sentences, no accessory muscle use. CVS- Rate rhythm regular, S1,S2 heard, no gallop, no rub. Abdomen- Soft nontender abdomen, no organomegaly, no tenderness, no guarding or rigidity, [facility]- AOOx3, moving all extremities, no gross focal deficit noted. Medical - PN: Obj Da - Labs CBC & Chem 7: 04/30/17 09:18 04/30/17 09:18 Labs: Abnormal Lab Results 04/30/17 04/30/17 09:18 09:18 Hgb 15.2 H Gran % 89.6 H Lymph % (Auto) 7.1 L Gran # 8.4 H Lymph # (Auto) 0.7 L Carbon Dioxide 21 L Glucose 195 H Meds: Medications Acetaminophen (Tylenol) 650 mg PO Q6HP PRN PRN Reason: PAIN/FEVER > 101 Hydrocodone Bitart/Acetaminophen ([place] 5/325mg) 1 tab PO Q4HP PRN PRN Reason: Pain Last Admin: 04/30/17 06:52 Dose: 1 tab Albuterol/Ipratropium (Duoneb) 3 ml NEB Q4HRT [facility] Last Admin: 04/30/17 06:54 Dose: 3 ml Azithromycin (Zithromax) 250 mg PO DAILY [facility] Stop: 05/03/17 09:01 Last Admin: 04/30/17 09:33 Dose: 250 mg Escitalopram Oxalate (Lexapro) 20 mg PO DAILY [facility] Last Admin: 04/30/17 09:33 Dose: 20 mg Famotidine (Pepcid) 20 mg IV Q12 [facility] Last Admin: 04/30/17 09:33 Dose: 20 mg Heparin Sodium (Porcine) (Heparin) 5,000 unit SQ Q12 [facility] Last Admin: 04/30/17 09:33 Dose: 5,000 unit Magnesium Hydroxide (Milk Of Magnesia) 30 ml PO DAILYP PRN PRN Reason: Constipation Montelukast Sodium (Singular) 10 mg PO HS [facility] Last Admin: 04/30/17 00:28 Dose: 10 mg Ondansetron HCl (Zofran) 4 mg IV Q4HP PRN PRN Reason: Nausea And Vomiting Prednisone (Prednisone) 60 mg PO [facility] Stop: 05/04/17 08:01 Last Admin: 04/30/17 07:03 Dose: 60 mg Medical - PN: A/P - Time Spent With Patient Total time spent is greater than 50% in coordination of care (as documented) at patient's floor/unit and/or counseling patient: - Narrative A/P Narrative: A/P Acute hypoxic resp failure Acute asthma exacerbation h/o PTSD, Anxiety Tobacco abuse Plan Patient clinically doing well, off oxygen, PO prednisone for now, continue zpack, and duonebs continue home medication pt is quit smoking now, reinforced need to not go back. DVT hep sq Diet Regular Full code Medical - PN: Qual - VTE Deep Vein Thrombosis/Pulmonary Embolism Present on Admission: No
[2017-04-30] MEDS ORDERED: 0.9 % SODIUM CHLORIDE 1,000 ML IV ONE (12:14)
[2017-04-30 15:41] LABS: Free T4 (Free Thyroxine) 1.19 ng/dl (0.7-1.7)
[2017-04-30] MEDS: guaiFENesin/DEXTROMETHORPHAN ORAL SOL PO PRN ×2 (19:24→23:45)
[2017-04-30 19:29] LABS: Amphetamine Screen,Urine SUSPECT POSITIVE (NONDETECTED); Benzodiazepines Screen,Urine NONE DETECTED (NONDETECTED); Cocaine Screen,Urine NONE DETECTED (NONDETECTED); Opiate Screen,Urine SUSPECT POSITIVE (NONDETECTED); Oxycodone, Urine Screen NONE DETECTED (NONDETECTED)
[2017-04-30] MEDS: LEVALBUTEROL 0.63 MG/3 ML AMPUL.NEB NEB SCH ×2 (20:09→23:41)
[2017-04-30] MEDS: IPRATROPIUM 2.5 ML AMPUL.NEB NEB SCH ×2 (20:09→23:41)
[2017-05-01] MEDS: LEVALBUTEROL 0.63 MG/3 ML AMPUL.NEB NEB SCH ×6 (03:20→22:57)
[2017-05-01] MEDS: IPRATROPIUM 2.5 ML AMPUL.NEB NEB SCH ×6 (03:20→22:56)
[2017-05-01] MEDS: HYDROcodone/APAP 5/325MG TABLET PO PRN ×3 (04:23→23:13)
[2017-05-01 05:59] LABS: Basophils # (Auto) 0.1 K/mcL (0.0-0.3); Basophils % (Auto) 0.6 % (0.0-2.0); Eosinophils # (Auto) 0.3 K/mcL (0.0-0.7); Eosinophils % (Auto) 1.7 % (0.0-7.0); Granulocytes % (Auto) 75.5 % (38.0-78.0); Lymphocytes # (Auto) 2.6 K/mcL (1.5-4.8); Lymphocytes % (Auto) 16.6 % (15.5-49.0); Mean Cell Volume 90.4 fL (80.0-100.0); Mean Corpuscular HGB Conc 34.5 g/dL (31.0-36.0); Mean Corpuscular Hemoglobin 31.2 pg (26.0-34.0); Monocytes # (Auto) 0.9 K/mcL (0.1-0.9); Monocytes % (Auto) 5.6 % (1.0-12.0); Platelet Count 338 K/mcL (140-440); RBC 4.57 M/mcL (4.00-5.20); Red Cell Distribution Width 12.4 % (11.5-14.5)
[2017-05-01 06:24] LABS: Blood Urea Nitrogen 10 mg/dl (6-20)
[2017-05-01] MEDS: guaiFENesin/DEXTROMETHORPHAN ORAL SOL PO PRN ×3 (06:56→23:14)
[2017-05-01] MEDS ORDERED: LEVALBUTEROL 0.63 MG/3 ML AMPUL.NEB NEB SCH (07:00)
[2017-05-01] MEDS: predniSONE 20 MG TABLET PO SCH (08:28)
[2017-05-01] MEDS: FAMOTIDINE/PF 20 MG/2 ML VIAL IV SCH ×2 (08:29→21:07)
[2017-05-01] MEDS: HEPARIN 5,000 UNIT/ML VIAL SQ SCH ×2 (08:29→21:08)
[2017-05-01] MEDS: AZITHROMYCIN 250 MG TABLET PO SCH (08:29)
[2017-05-01] MEDS: ESCITALOPRAM 20 MG TABLET PO SCH (08:31)
[2017-05-01] MEDS ORDERED: BUDESONIDE 0.5 MG/2 ML AMPUL.NEB NEB SCH (09:00)
--- NOTE | 2017-05-01 09:05 | Internal Med Progress Note ---
Medical - PN: Subj Patient information: Note initiated : 05/01/17 at 9:02 am Service Date, if different from initiated Date: [] Patient: Jackie Beth a 26 y/o F admitted on 04/29/17 for SOB, Cough/Asthma with Exacerbation. Chief Complaint: [] Interval history: Ms. Beth is a 26 year old female with history of asthma. Has not yet seen a anesthetic assistant, comes to the ER with history of shortness of breath going on for the last 2 weeks. The patient's shortness of breath is associated with cough, decreased effort tolerance, subjective sensations of chills, wheezing, and chest pain with deep inspiration. Shortness of breath is better with rest. The patient also reports that her shortness of breath gets worse when she takes a hot shower. She thinks that humidity makes it worse. the cough is reported as dry,she notes that there is sometimes back pain associated with coughing. The patient reports that the symptoms overall started at the beginning of the year,but she started to have shortness of breath. The patient has been admitted to the hospital once somewhere around JANUARY or FEBRUARY for asthma exacerbation. She has also been to the ED a few times. Later on. The patient denies any history of intubation because of asthma. The patient has a few pets in her house, but reports that that do not bother her , she had strong history of smoking, smoked for 8 years, quit this FEBRUARY. Denies any family history of asthma,notes that her mother had history of pulmonary hypertension and diabetes. She denies any other recreational drugs. Denies any use of alcohol. Denies any occupational exposure to smoke, however, does agree that whenever she is working with chemicals or asthma with flareup. 04/30: patient seen and examined this morning, partner in the room with her. The patient notes that she still has soreness in the chest, still has shortness of breath. No longer requires oxygen, however minimal activity makes her very tachycardic. The exam today shows that she is still wheezing. But the symptoms are much better compared to yesterday. The patient denies any abdominal pain, had some nausea, no vomiting 05/01: Pt seen examined, no acute overnight events, HR much better now after switching albuterol to xoponex, the patient utox is also positive for amphetamine, not sure if this had a role in tachcyardia. The patient still feels very tired and still has significant shortness of breath. She has cough, but no other complaints. She will continue with xoponex (dose increased to 1.25) and atrovent, continue steroids, add budesonide bid to her regime. monitor Given her persistant symptoms, and lack of improvement over 2 days, and the fact that this is her second admission to the hospital this year, with another 2 ER visits, will make the patient inpatient to continue with aggresive nebulizer treatment Advised patient to ambulate as much as possible. Pertinent ROS: Denies headache, dizziness Denies chest pain, palpitations cough present, shortenss of breath present, somewhat better since admissino. Denies abdominal pain, nausea or vomiting. - Constitutional Vitals: Vital Signs Temp Pulse Resp BP Pulse Ox 98.6 F 82 18 126/73 93 05/01/17 06:42 05/01/17 06:50 05/01/17 07:17 05/01/17 06:42 05/01/17 06:50 Period Temp Pulse Resp BP Sys/Gore Pulse Ox Last 24 Hr 98.2 F-100 F 78-120 16-20 114-129/67-76 93-96 Intake and Output 04/30/17 05/01/17 05/01/17 21:59 05:59 13:59 Intake Total 1150 / 1150 720 / 720 Output Total 200 / 200 Balance 950 / 950 719 / 719 Weight 151 lb Intake & Output: Intake & Output 04/30/17 05/01/17 05/01/17 21:59 05:59 13:59 Intake Total 1150 / 1150 720 / 720 Output Total 200 / 200 Balance 950 / 950 719 / 719 Weight 151 lb Intake: Oral 1150 / 1150 720 / 720 Output: Void Amount 200 / 200 Other: Meal Dinner Nourishment/Supplement Percent of Meal Consumed 100% 100% Feeding Ability Independent Independent # Voids 2 1 Exam: Constitutional; Afebrile, cooperative, alert, not in distress. Eyes- No icterus, No periorbital swelling Ears- Ext ear normal, hearing normal to conversation. Neck- Midline trachea, supple Respiratory system: Air Entry equal on both sides signifcant wheezing and rhonci , prloned exp phase, no accesory muscle use, speaking full sentences. CVS- Rate rhythm regular, S1,S2 heard, no gallop, no rub. 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 Medical - PN: Obj Da - Labs CBC & Chem 7: 05/01/17 04:23 05/01/17 04:23 Labs: Abnormal Lab Results 05/01/17 05/01/17 04/30/17 04:23 04:23 18:33 WBC 15.5 H Hgb Gran % Lymph % (Auto) Gran # 11.6 H Lymph # (Auto) Carbon Dioxide 20 L Glucose 120 H Calcium 8.2 L TSH Urine Opiates Screen Suspect positive A Ur Amphetamines Screen Suspect positive A 04/30/17 04/30/17 04/30/17 09:18 09:18 08:19 WBC Hgb 15.2 H Gran % 89.6 H Lymph % (Auto) 7.1 L Gran # 8.4 H Lymph # (Auto) 0.7 L Carbon Dioxide 21 L Glucose 195 H Calcium TSH 0.20 L Urine Opiates Screen Ur Amphetamines Screen Meds: Medications Acetaminophen (Tylenol) 650 mg PO Q6HP PRN PRN Reason: PAIN/FEVER > 101 Hydrocodone Bitart/Acetaminophen ([place] 5/325mg) 1 tab PO Q4HP PRN PRN Reason: Pain Last Admin: 05/01/17 04:23 Dose: 1 tab Azithromycin (Zithromax) 250 mg PO DAILY [facility] Stop: 05/03/17 09:01 Last Admin: 05/01/17 08:29 Dose: 250 mg Budesonide (Pulmicort) 0.5 mg NEB Q12 [facility] Escitalopram Oxalate (Lexapro) 20 mg PO DAILY [facility] Last Admin: 05/01/17 08:31 Dose: 20 mg Famotidine (Pepcid) 20 mg IV Q12 [facility] Last Admin: 05/01/17 08:29 Dose: 20 mg Guaifenesin (Robitussin Dm) 10 ml PO Q4HP PRN PRN Reason: Cough Last Admin: 05/01/17 06:56 Dose: 10 ml Heparin Sodium (Porcine) (Heparin) 5,000 unit SQ Q12 [facility] Last Admin: 05/01/17 08:29 Dose: 5,000 unit Ipratropium [place] (Atrovent) 2.5 ml NEB Q4HRT [facility] Last Admin: 05/01/17 06:50 Dose: 2.5 ml Levalbuterol HCl (Xopenex) 1.25 mg NEB Q4HRT [facility] Magnesium Hydroxide (Milk Of Magnesia) 30 ml PO DAILYP PRN PRN Reason: Constipation Montelukast Sodium (Singular) 10 mg PO [facility] Last Admin: 04/30/17 22:10 Dose: 10 mg Ondansetron HCl (Zofran) 4 mg IV Q4HP PRN PRN Reason: Nausea And Vomiting Prednisone (Prednisone) 60 mg PO [facility] Stop: 05/04/17 08:01 Last Admin: 05/01/17 08:28 Dose: 60 mg Medical - PN: A/P - Time Spent With Patient Total time spent is greater than 50% in coordination of care (as documented) at patient's floor/unit and/or counseling patient: - Narrative A/P Narrative: A/P Acute hypoxic resp failure: was no oxygen, but now ofi, resolved Tachycardia: due to asthma, Duonebs vs amphetamines, now much better with switching to xoponex. TSH low, but t4 normal, await t3, tsh mildly low likely from steroid use. Acute asthma exacerbation: persistent, not improving clinically, h/o PTSD, Anxiety: continue home dose of lexapro 20mg, Tobacco abuse/ amphetamine use (pt admits use 1 week ago denied during admission ) : counselled. DVT hep sq Diet Regular Full code xfer to med surg, Admit as inpatient today given non response to treatments Medical - PN: Qual - VTE Deep Vein Thrombosis/Pulmonary Embolism Present on Admission: No
[2017-05-01] MEDS ORDERED: ACETAMINOPHEN 325 MG TABLET PO PRN (09:29)
[2017-05-01] MEDS ORDERED: ONDANSETRON 4 MG/2 ML VIAL IV PRN (09:29)
[2017-05-01] MEDS ORDERED: MAGNESIUM HYDROXIDE 30 ML ORAL.SUSP PO PRN (09:29)
[2017-05-01] MEDS: BUDESONIDE 0.5 MG/2 ML AMPUL.NEB NEB SCH (19:27)
[2017-05-01] MEDS ORDERED: MONTELUKAST 10 MG TABLET PO SCH (21:00)
[2017-05-02] MEDS: LEVALBUTEROL 0.63 MG/3 ML AMPUL.NEB NEB SCH ×2 (03:52→07:16)
[2017-05-02] MEDS: IPRATROPIUM 2.5 ML AMPUL.NEB NEB SCH ×2 (03:52→07:15)
[2017-05-02 06:22] LABS: Basophils # (Auto) 0.1 K/mcL (0.0-0.3); Basophils % (Auto) 0.5 % (0.0-2.0); Eosinophils # (Auto) 0.7 K/mcL (0.0-0.7); Eosinophils % (Auto) 5.1 % (0.0-7.0); Granulocytes % (Auto) 63.2 % (38.0-78.0); Mean Cell Volume 93.6 fL (80.0-100.0); Mean Corpuscular HGB Conc 33.4 g/dL (31.0-36.0); Mean Corpuscular Hemoglobin 31.3 pg (26.0-34.0); Monocytes # (Auto) 1.1 K/mcL (0.1-0.9); Monocytes % (Auto) 8.2 % (1.0-12.0); Platelet Count 323 K/mcL (140-440); RBC 4.54 M/mcL (4.00-5.20); Red Cell Distribution Width 13.3 % (11.5-14.5)
[2017-05-02 06:46] LABS: Blood Urea Nitrogen 14 mg/dl (6-20)
[2017-05-02] MEDS: BUDESONIDE 0.5 MG/2 ML AMPUL.NEB NEB SCH (07:15)
[2017-05-02] MEDS ORDERED: predniSONE 20 MG TABLET PO SCH (08:00)
[2017-05-02] MEDS: HYDROcodone/APAP 5/325MG TABLET PO PRN (08:33)
[2017-05-02] MEDS: FAMOTIDINE/PF 20 MG/2 ML VIAL IV SCH (08:34)
[2017-05-02] MEDS: HEPARIN 5,000 UNIT/ML VIAL SQ SCH (08:34)
[2017-05-02] MEDS ORDERED: ESCITALOPRAM 20 MG TABLET PO SCH (09:00)
[2017-05-02] MEDS ORDERED: AZITHROMYCIN 250 MG TABLET PO SCH (09:00)
--- NOTE | 2017-05-02 10:42 | Discharge Summary ---
Medical - DS: Prov Patient information: Note initiated : 05/02/17 at 10:38 am Service Date, if different from initiated Date: [] Patient: Jackie Beth 27 y/o F admitted on 05/01/17 for SOB, Cough/Asthma with Exacerbation. Chief Complaint: [] Date of admission: 05/01/17 09:00 Discharge date: 05/02/17 Primary care physician: Miok Hardy Admitting clinician: Ej Krishnan Discharging clinician: Ej Krishnan Medical - DS: Meds - Discharge Medications Prescriptions: Azithromycin [Zithromax] 250 mg PO DAILY #2 tablet predniSONE [Prednisone] 10 mg PO [facility] #24 tablet Active and Home Medications: Home Medications Acetaminophen [Tylenol] 650 mg PO Q6HP PRN tab 02/17/17 [Rx Confirmed 05/01/17 Last Taken 04/30/17] Albuterol Sulfate 1.25 mg IH Q4HP PRN #60 ml 02/17/17 [Rx Confirmed 05/01/17 Last Taken 04/29/17] Fluticasone/Salmeterol [Advair 250-50 Diskus] 1 puff INH BID #1 inhaler [Rx Confirmed 05/01/17 Last Taken 04/29/17] Inhaler, Assist Devices [E-Z Spacer] 1 each IH QIDP PRN #1 spacer 02/17/17 [Rx Confirmed 05/01/17 Last Taken 04/29/17] guaiFENesin/CODEINE [Robitussin AC] 5 ml PO Q4HP PRN #120 ml 02/17/17 [Rx Confirmed 05/01/17 Last Taken 04/29/17] albuterol sulfate HFA 90 mcg/actuation aerosol inhaler 2 puff INHALATION Q6 PRN #1 hfa.aer.ad 04/27/17 [Rx Confirmed 05/01/17 Last Taken 04/29/17] escitalopram 20 mg tablet 20 mg PO QDAY #90 tab 04/27/17 [Rx Confirmed 05/01/17 Last Taken 04/29/17] montelukast 10 mg tablet 10 mg PO QHS #30 tab 04/27/17 [Rx Confirmed 05/01/17 Last Taken 04/29/17] Medical - DS: Hosp Hospital course: Ms. Beth is a 26 year old female with history of asthma. 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 The patient's shortness of breath is associated with cough, decreased effort tolerance, subjective sensations of chills, wheezing, and chest pain with deep inspiration. Shortness of breath is better with rest. The patient also reports that her shortness of breath gets worse when she takes a hot shower. She thinks that humidity makes it worse. the cough is reported as dry,she notes that there is sometimes back pain associated with coughing. she was admitted to the hospital with diagnosis of acute asthma exacerbation needing supplemental oxygen therapy. Asthma exacerbation: CXR neg for pna, treated with steroids and duonebs, took 4 days to respond to treatment. She was treated with PO steroids and duonebs, initially the duonebs made andra patient tachycardic, but switching to xoponex helped control HR better The patient also had Utox positive for meth, admits to use it / smokes it. Educated in detail regarding substance use and increased risk of asthma. Pt verbalized understanding. At the time of discharge today, she still has very mild wheeze but is feeling much better, eager to go home, ambulating well, speaking full sentences and has no accesory muscle use. She will be discharged on po prednisone taper and her albuterol inhaler. Discharge diagnosis: asthma exacerbation - Time Spent with Patient Total time spent providing and/or coordinating discharge services: Less than 30 minutes Medical - DS: Exam - Constitutional Vitals: Vital Signs Temp Pulse Pulse Resp BP Pulse Ox 05/02/17 07:29 88 18 97 05/02/17 07:04 98.0 F 18 103/64 94 05/02/17 03:47 97.9 F 80 18 107/67 94 05/01/17 23:09 98.4 F 92 H 20 149/75 96 05/01/17 22:57 88 18 05/01/17 19:48 98.1 F 104 H 18 124/72 94 05/01/17 19:28 88 16 05/01/17 16:00 97.4 F 111 H 16 114/76 05/01/17 14:53 88 18 94 05/01/17 11:51 97.7 F 20 127/71 94 05/01/17 11:22 96 H 20 95 Intake and Output 05/01/17 05/02/17 05/02/17 21:59 05:59 13:59 Intake Total 1500 / 1500 Balance 1500 / 1500 Intake: Oral 1500 / 1500 Other: # Voids 3 Weight 151 lb Additional comments: Constitutional; Afebrile, cooperative, alert, not in distress. Eyes- No icterus, , No periorbital swelling Ears- Ext ear normal, hearing normal to conversation. Neck- Midline trachea, supple Respiratory system: Air Entry equal on both sides, no crackles, very mild wheeze. CVS- Rate rhythm regular, S1,S2 heard, no gallop, no rub. 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 Medical - DS: Data Labs on day of discharge: Labs from last 24 hours 05/02/17 05/02/17 04:40 04:40 WBC 13.2 H RBC 4.54 Hgb 14.2 Hct 42.6 MCV 93.6 MCH 31.3 MCHC 33.4 RDW 13.3 Plt Count 323 MPV 9.1 Gran % 63.2 Lymph % (Auto) 23.0 [place] % (Auto) 8.2 Eos % (Auto) 5.1 Baso % (Auto) 0.5 Gran # 8.4 H Lymph # (Auto) 3.0 [place] # (Auto) 1.1 H Eos # (Auto) 0.7 Baso # (Auto) 0.1 Sodium 140 Potassium 3.6 Chloride 105 Carbon Dioxide 23 Anion Gap 12.0 BUN 14 Creatinine 0.5 L GFR Calculation 135 Glucose 89 Calcium 8.4 L Medical - DS: A/P - Patient/Caregiver Discharge Instructions Activity: increase activity as tolerated Diet: Regular Diet Additional Instructions: tGo to ER if worsening symptoms, or any new concern Take your meds as prescribed FOllow up with [facility] PCP in 1 week Prescriptions: Azithromycin [Zithromax] 250 mg PO DAILY #2 tablet predniSONE [Prednisone] 10 mg PO [facility] #24 tablet - Follow up Plan Follow up with: Miko Hardy PA-C [Primary Care Provider] - Ej Krishnan MD [Physician] - Disposition: Home, Self-Care Prognosis: Fair Rehab Potential: Fair I certify that the patient requires SNF services: No Overall status at discharge: patient is progressing back to baseline Medical - DS: Qual - VTE Deep Vein Thrombosis/Pulmonary Embolism Present on Admission: No
[2017-05-04 10:10] LABS: Triiodothyronine (T3) Total 91 ng/dL (76-181)
== END 2017-05-02 11:46 | disposition home or self-care (01) | DRG 202 ==
LOC: ICU 19:13 → ED 19:13 → ICU 22:29 → MEDSUR 05-01 13:10
PROVIDERS: ADMIT Internal Medicine; ATTEND Internal Medicine